=== PATIENT | female | born 1960 | race African-American/Black ===

== ENCOUNTER 2018-06-06 16:48 | Inpatient (IN) ==
[2018-06-06] MEDS ORDERED: NS 1,000 ML IV ONE (17:15)
[2018-06-06] MEDS ORDERED: PROTONIX IV ONE (17:15)
[2018-06-06] MEDS ORDERED: SODIUM CHLORIDE 0.9% INJ ONE (17:15)
[2018-06-06] MEDS ORDERED: ATIVAN IV ONE (17:16)
[2018-06-06] MEDS ORDERED: ZOFRAN IV ONE ×2 (17:16→18:08)
--- NOTE | 2018-06-06 17:42 | Diag Imaging Result Doc PS360 ---
EXAM: CHEST-2 VIEWS 06/06/2018 HISTORY: tachypneic TECHNIQUE: AP upright and lateral chest COMMENT: There is cardiomegaly. There are bilateral pleural effusions. There is lingular atelectasis. None of these findings were present on 01/17/2015. IMPRESSION: Atelectasis versus pneumonia. Cardiomegaly and pleural effusions. Electronically signed by Melchor Goss 06/06/2018 5:39 PM
[2018-06-06 18:02] LABS: BASO# 0.02 X1000 (0.0-0.2); BASO% 0.2 % (0.0-0.8); EOS# 0.01 X1000 (0.0-0.7); EOS% 0.1 % (0.0-10.0); HEMATOCRIT 36.5 % (37.0-47.0); HEMOGLOBIN 11.8 g/dL (12.0-16.0); IMM GRAN# 0.07 X1000 (0.0-0.04); IMM GRAN% 0.5 % (0.0-0.5); LYMPH# 1.91 X1000 (1.2-3.4); LYMPH% 14.7 % (20.5-51.1); MCH 30.4 PG (27-31); MCHC 32.3 g/dL (33-37); MCV 94.1 FL (81-99); MONO# 1.79 X1000 (0.11-0.59); MONO% 13.8 % (1.7-9.3); MPV 10.1 FL (7.4-10.4); NEUT# 9.18 X1000 (1.4-6.5); NEUT% 70.7 % (42.2-75.2); PLT 281 X1000 (130-400); RBC 3.88 XMIL (4.2-5.4); RDW 12.1 % (11.5-14.5); WBC 12.98 X1000 (4.8-10.8)
[2018-06-06 18:19] LABS: ALBUMIN 3.8 g/dL (3.5-5.0); CREATININE 1.3 mg/dL (0.5-0.9); POTASSIUM 4.2 mmol/L (3.5-5.1); TOTAL BILIRUBIN 0.8 mg/dL (0.20-1.00); TOTAL PROTEIN 7.7 g/dL (6.3-8.3)
[2018-06-06] MEDS ORDERED: ROCEPHIN 1 GM in NS 50 ML IV ONE (18:19)
[2018-06-06] MEDS ORDERED: TORADOL IV ONE (18:37)
[2018-06-06] MEDS ORDERED: XANAX PO PRN (20:43)
[2018-06-06] MEDS: DESYREL PO SCH (21:43)
[2018-06-06] MEDS: TOPROL XL PO SCH (21:44)
--- NOTE | 2018-06-06 22:56 | PROVIDER DOCUMENTATION ---
This chart was entered by Miracle Lindquist Scribe, acting as scribe for Jevon Webster MD. HPI-Respiratory General - General Stated Complaint: flank pain/confusion Time Seen by Provider: 06/06/18 16:57 Source: patient, EMS ([employer] [employer]) Allergies/Adverse Reactions: Patient Allergies Allergy/AdvReac Type Severity Reaction Status Date / Time No Known Allergies Allergy Verified 06/06/18 19:07 Home Medications: Home Medication List Medication Instructions Recorded Confirmed Last Taken Type Alprazolam 1 mg PO HS PRN 05/23/17 06/06/18 09/05/17 History Metoprolol Succinate 100 mg PO HS 05/23/17 06/06/18 09/04/17 History Trazodone [Desyrel] 150 mg PO QHS 09/05/17 06/06/18 09/04/17 History - History of Present Illness-Resp Nature of Presenting Problem: 57 yobf presents to the ed via ems ([employer]) with sob and rib pain, LUQ pain and thoracic back pain intermittent for 1 month Quality of Pain: reports: fullness Severity in ED: reports: mild Onset/Duration: reports: other (1 month) Timing: reports: still present Exposure: reports: unknown cause Cough Quality/Degree: reports: mild, dry cough Episode Frequency: frequent episodes Current Respiratory Medication Therapy: Initiated see nurses note Modifying Factors: improves with: oxygen (2LPM), sitting upright. worse with: exertion, lying down Associated Symptoms: reports: cough, fever/chills (99.5), hurts to breathe, shortness of breath, other (n/v). denies: headache, wheezing Similar Symptoms Previously?: Yes Recently seen or treated by another doctor?: Yes (recently seen in ed for elena) Review of Systems - Adult - REVIEW OF SYSTEMS - ADULT Constitutional: reports: see HPI, chills, fever (99.5) Eyes: reports: no symptoms reported Ears, Nose, Mouth & Throat: reports: no symptoms reported Cardiovascular: reports: see HPI, other (hurts to breathe). denies: chest pain , syncope Respiratory: reports: see HPI, cough, dyspnea on exertion, excessive sputum production, pleurisy, shortness of breath. denies: wheezing Gastrointestinal: reports: see HPI, abdominal pain, nausea, vomiting. denies: diarrhea Genitourinary: reports: no symptoms reported Musculoskeletal: reports: see HPI, back pain. denies: neck pain Integumentary: reports: no symptoms reported Neurological: denies: dizziness/vertigo, headache/migraines Psychiatric: reports: no symptoms reported Endocrine: reports: no symptoms reported Hematologic/Lymphatic: reports: no symptoms reported Allergic/Immunologic: reports: no symptoms reported All Other Systems: Reviewed and Negative Past History - Adult - PAST MEDICAL HISTORY-ADULT Review of Records: reports: Old Records Reviewed, Nursing Assessment Review, Medications Reviewed, Social history reviewed & non-contributory. Major Childhood Illnesses: reports: denies history Cardiovascular: reports: HTN Respiratory: reports: denies history Gastrointestinal: reports: GERD Obstetrical/Gynecological: reports: denies history Genitourinary: reports: denies history Musculoskeletal: reports: chronic pain Neurological: reports: denies history Psychiatric: reports: anxiety, depression Endocrine/Immune: reports: denies history Other Conditions: reports: denies history - PRIOR SURGERIES/PROCEDURES Surgical/Procedure History: reports: reviewed, not pertinent, hysterectomy - IMMUNIZATION STATUS Childhood Immunizations: See Nurse Assessment Flu Vaccine: See Nurse Assessment - FAMILY HISTORY Family History: reviewed, not pertinent - SOCIAL HISTORY Smoking: cigarettes, less than 1 pack/day Provider spent 3-5 mins advising pt. on dangers of tobacco.: Discussed manners to quit use, and f/u contacts for add'l counseling. Substance Use: denies Alcohol Use Frequency: never Living Situation: family Physical Exam-General - PHYSICAL EXAM-ADULT Initial Vital Signs Reviewed: Yes - CONSTITUTIONAL General Appearance: alert, mild distress, obese - EYES Eyes: PERRL/EOMI, pale conjunctivae - HEAD, EARS, NOSE, MOUTH & THROAT HENMT: normocephalic/atraumatic. negative: moist mucous membranes (dry) - NECK Neck: supple, normal inspection - RESPIRATORY Respiratory: chest non-tender, respiratory distress (mild), increased rate (24) , other (speaking in 4-5 word sentences). negative: accessory muscle use, crackles, rales, rhonchi - CARDIOVASCULAR Cardiovascular: normal peripheral pulses, tachycardia (122) - GASTROINTESTINAL (ABDOMEN) Abdominal Exam: normal bowel sounds, soft, tenderness (LUQ with palpation) - GENITOURINARY Female Genitalia/Pelvic Exam: deferred Rectal Exam: deferred Hemoccult Exam: deferred - LYMPHATIC Lymphatic: no adenopathy - MUSCULOSKELETAL Back Exam: normal inspection, no CVA tenderness, muscle spasm, other (thoracic tenderness from rib pain) Extremity: normal range of motion, normal gait, no calf tenderness, normal capillary refill, pelvis stable - SKIN Integumentary: normal color, normal turgor, warm/dry - NEUROLOGIC Neurologic: grossly normal, no motor/sensory deficits - PSYCHIATRIC Psych/Mental Status: normal mood/affect, normal thought content, normal thought process, oriented x 3 Progress - PLAN OF CARE/RESULTS Progress/Plan/Lab Results: Vital Signs - 8 hr 06/06/18 16:50 06/06/18 17:10 06/06/18 17:15 Temperature 99.5 F Pulse Rate 123 H 120 H 120 H Respiratory Rate 18 Blood Pressure 121/90 121/90 O2 Sat by Pulse Oximetry 96 95 96 06/06/18 17:20 06/06/18 17:34 06/06/18 17:40 Temperature Pulse Rate 120 H 120 H 121 H Respiratory Rate Blood Pressure O2 Sat by Pulse Oximetry 95 96 92 L 06/06/18 17:50 06/06/18 18:00 06/06/18 18:10 Temperature Pulse Rate 119 H 119 H 121 H Respiratory Rate Blood Pressure O2 Sat by Pulse Oximetry 94 L 94 L 94 L 06/06/18 18:16 06/06/18 18:20 06/06/18 18:30 Temperature Pulse Rate 120 H 119 H 119 H Respiratory Rate Blood Pressure 127/103 O2 Sat by Pulse Oximetry 93 L 92 L 93 L 06/06/18 18:40 06/06/18 18:50 06/06/18 19:00 Temperature Pulse Rate 120 H 120 H 120 H Respiratory Rate Blood Pressure O2 Sat by Pulse Oximetry 98 94 L 93 L 06/06/18 19:03 06/06/18 19:10 06/06/18 19:20 Temperature Pulse Rate 121 H 126 H 120 H Respiratory Rate Blood Pressure 157/85 O2 Sat by Pulse Oximetry 93 L 94 L 94 L 06/06/18 19:30 Temperature Pulse Rate 121 H Respiratory Rate Blood Pressure O2 Sat by Pulse Oximetry 93 L Laboratory Results - last 24 hr 06/06/18 06/06/18 06/06/18 17:47 17:47 17:47 WBC 12.98 H RBC 3.88 L Hgb 11.8 L Hct 36.5 L MCV 94.1 MCH 30.4 MCHC 32.3 L RDW Std Deviation 12.1 Plt Count 281 MPV 10.1 Immature Gran % (Auto) 0.5 Neut % (Auto) 70.7 Lymph % (Auto) 14.7 L [place] % (Auto) 13.8 H Eos % (Auto) 0.1 Baso % (Auto) 0.2 Immature Gran # (Auto) 0.07 H Neut # (Auto) 9.18 H Lymph # (Auto) 1.91 [place] # (Auto) 1.79 H Eos # (Auto) 0.01 Baso # (Auto) 0.02 Sodium 137 Potassium 4.2 Chloride 102 Carbon Dioxide 19 L Anion Gap 16 BUN 31 H Creatinine 1.3 H Estimated GFR/1.73 m2 51 BUN/Creatinine Ratio 24 Glucose 119 H Calculated Osmolality 282 Calcium 9.0 Total Bilirubin 0.80 AST 19 ALT 18 Alkaline Phosphatase 98 Creatine Kinase 50 Troponin T Total Protein 7.7 Albumin 3.8 Globulin 3.9 Albumin/Globulin Ratio 1.0 Amylase 29 Lipase 17 Plasma Lactate 06/06/18 06/06/18 17:47 18:39 WBC RBC Hgb Hct MCV MCH MCHC RDW Std Deviation Plt Count MPV Immature Gran % (Auto) Neut % (Auto) Lymph % (Auto) [place] % (Auto) Eos % (Auto) Baso % (Auto) Immature Gran # (Auto) Neut # (Auto) Lymph # (Auto) [place] # (Auto) Eos # (Auto) Baso # (Auto) Sodium Potassium Chloride Carbon Dioxide Anion Gap BUN Creatinine Estimated GFR/1.73 m2 BUN/Creatinine Ratio Glucose Calculated Osmolality Calcium Total Bilirubin AST ALT Alkaline Phosphatase Creatine Kinase Troponin T < 0.010 Total Protein Albumin Globulin Albumin/Globulin Ratio Amylase Lipase Plasma Lactate 2.5 H Orders Category Date Time Status Admit - [facility] Routine AdmDCTranf 06/06/18 18:35 Active Nursing- MD Consult Request ROUTINE Care 06/06/18 20:43 Active VS [Vital Signs Order] Q 4-HR ASSESS Care 06/06/18 20:43 Active Z-Document. for Tele Applied ORDERED Care 06/06/18 20:43 Active MD [Physician/Provider Consults] Routine Cons 06/06/18 20:43 Ordered cxr [CHEST-2 VIEWS] [RAD] Stat Exams 06/06/18 17:14 Completed AMYLASE [CHEM] Stat Lab 06/06/18 17:47 Completed BASIC METABOLIC PANEL [CHEM] DAILY Lab 06/07/18 06:00 Ordered BASIC METABOLIC PANEL [CHEM] DAILY Lab 06/08/18 06:00 Ordered BASIC METABOLIC PANEL [CHEM] DAILY Lab 06/09/18 06:00 Ordered BLOOD CULTURE [BLDCUL] Stat Lab 06/06/18 18:39 Results CBC WITH DIFF [HEME] DAILY Lab 06/07/18 06:00 Ordered CBC WITH DIFF [HEME] DAILY Lab 06/08/18 06:00 Ordered CBC WITH DIFF [HEME] DAILY Lab 06/09/18 06:00 Ordered CBC WITH ELECTRONIC DIFF [HEME] Stat Lab 06/06/18 17:47 Completed CK PROFILE [SP CHEM] Q8HR Lab 06/06/18 17:47 Completed CK PROFILE [SP CHEM] Q8HR Lab 06/07/18 05:00 Ordered CK PROFILE [SP CHEM] Q8HR Lab 06/07/18 13:00 Ordered CMP [COMPREHENSIVE METABOLIC PANEL] [CHEM] Stat Lab 06/06/18 17:47 Completed Flu Swab [INFLUENZA SCREEN A/B] Stat Lab 06/06/18 21:02 Completed LACTATE, PLASMA [CHEM] Stat Lab 06/06/18 18:39 Completed LIPASE [CHEM] Stat Lab 06/06/18 17:47 Completed SPUTUM CULTURE WITH GRAM STAIN [RM] Stat Lab 06/06/18 20:43 Uncollected TROPONIN T Q8HR Lab 06/06/18 17:47 Completed TROPONIN T Q8HR Lab 06/07/18 05:00 Ordered TROPONIN T Q8HR Lab 06/07/18 13:00 Ordered pro-bnp [PRO B-NATRIURETIC PEPTIDE] Stat Lab 06/06/18 20:43 Uncollected 0.9% Sodium Chloride Inj [Ns] 1,000 ml Med 06/06/18 17:15 Discontinued IV 999 mls/hr Alprazolam [Xanax] Med 06/06/18 20:43 Active 1 mg PO HS PRN PRN CefTRIAXONE [Rocephin] 1 gm Med 06/06/18 18:19 Discontinued 0.9% Sodium Chloride Inj [Ns] 50 ml IV NOW CefTRIAXONE [Rocephin] 1 gm Med 06/07/18 06:00 Discontinued 0.9% Sodium Chloride Inj [Ns] 50 ml IV Q12H Ketorolac [Toradol] Med 06/06/18 18:37 Discontinued 15 mg IV NOW ONE Lorazepam [Ativan] Med 06/06/18 17:16 Discontinued 1 mg IV NOW ONE Metoprolol Succinate E.r. [Toprol Xl] Med 06/06/18 21:00 Active 100 mg PO HS Ondansetron [Zofran] Med 06/06/18 18:08 Discontinued 4 mg IV NOW ONE Ondansetron [Zofran] Med 06/06/18 17:16 Discontinued 8 mg IV NOW ONE Pantoprazole [Protonix] Med 06/06/18 17:15 Discontinued 40 mg IV NOW ONE Sodium Chloride 0.9% Med 06/06/18 17:15 Discontinued 10 ml INJ NOW ONE Trazodone [Desyrel] Med 06/06/18 21:00 Active 150 mg PO QHS Telemetry [OM.EQ] Routine Oth 06/06/18 20:43 Active EKG [EKG] Stat Ther 06/06/18 18:21 Ordered Echo Spec/Color Dop W/O Contra Routine Ther 06/06/18 20:43 Ordered Transfer/Admit Order [TRANSFER] Routine Transfer 06/06/18 18:36 Completed Patient meet criteria for sepsis. sepsis protocol initiated. Patient care, assessment and plan discussed with the attending physician Dr. Leobardo Navarro and he agree with the plan as documented. Result Diagrams: 06/06/18 17:47 06/06/18 17:47 - REASSESSMENT Reassessment #1 Time Reassessed: 17:21 Status: unchanged - XRAY 1 XRAY: Bilateral XRAY Study: Chest (EXAM: CHEST-2 VIEWS 06/06/2018 HISTORY: tachypneic TECHNIQUE: AP upright and lateral chest COMMENT: There is cardiomegaly. There are bilateral pleural effusions. There is lingular atelectasis. None of these findings were present on 01/17/2015. IMPRESSION: Atelectasis versus pneumonia. Cardiomegaly and pleural effusions. Electronically signed by Melchor Goss 06/06/2018 5:39 PM) Impression: See EMR Report - CONSULTS/PCP/HOSPITALIST Notification #1 *Consult/PCP/Hospitalist*: Dr. Gonzales Time Discussed: 18:38 Consult Disposition: Admit (Hx, Physical exam and Dx Disucssed with Dr. Gonzales.) Departure - Departure Date of Disposition Decision: 06/06/18 Time of Disposition Decision: 18:37 DIAGNOSIS: Tobacco use disorder, Pleural effusion Pneumonia Qualifiers: Pneumonia type: due to unspecified organism Laterality: bilateral Lung location : unspecified part of lung Qualified Code(s): J18.9 - Pneumonia, unspecified organism Sepsis Qualifiers: Sepsis type: sepsis due to unspecified organism Qualified Code(s): A41.9 - Sepsis, unspecified organism Disposition: ADMITTED INPATIENT 09 Certified Medical Emergency: Emergent Condition: Stable - Critical Care Note This patient required my direct & personal management of CC.: No Attestation - Physician/ BHARATHI Attestation Patient care was provided by Advanced Practice Provider:: No The physician spent face to face time with patient:: Yes Advanced Practice Provider documentation review:: Supervising physician onsite and consulted in the evaluation and care of this patient. The physician did have a face to face encounter with the patient. This chart was documented by the indicated scribe, (Miracle Lindquist Scribe) and accurately reflects the services I performed and decisions made by me, Jevon Webster MD, as attested by the provider's signature.
--- NOTE | 2018-06-07 00:05 | HISTORY AND PHYSICAL ---
DATE: 06/06/2018 Admitted on 06/06/[address] Coronado by Dr. Kian Gonzales. CHIEF COMPLAINT: Shortness of breath, with chest pain on deep breaths. HISTORY OF PRESENT ILLNESS: The patient as a 57-year-old female, who says she has been sick since , which is approximately 2 months. She went to the emergency room one time, and was given some ibuprofen about 2 weeks ago. She comes back in, says she is still coughing, coughing up some yellow sputum. Has not noticed any fever at home. Has not noticed any wheezing. She just can't quit coughing. Now, she is short of breath. Chest x-ray shows bilateral pleural effusions, lingular atelectasis versus pneumonia, and cardiomegaly, that were not there on previous x-rays, at least in 2014. Initially, it was felt she had bilateral lower lobe infiltrates, but I do not see that on her x-ray, and it was not reported by the vegetable specker. Her white count is 12,980, with a hemoglobin 11.8, hematocrit 36.5. Electrolytes are essentially normal. Creatinine is slightly up at 1.3, BUN 31. HOME MEDICATIONS: Includes Xanax 1 mg at bedtime as needed for anxiety. She says she does not use much of that. Metoprolol ER 24 100 mg at bedtime. Trazodone 150 mg at bedtime. She tells me she was taking Norvasc, so I am not sure which one she is really on. We will have to clarify this. SOCIAL HISTORY: Smokes a little less than a pack a day now. Used to smoke a pack a day. Quit using alcohol in 2002. Apparently, was using crack cocaine and whiskey at that time, and went into a treatment program, and got off of alcohol and drugs. PAST MEDICAL HISTORY: Past history also includes lumbar disk disease. She says she is seeking disability based on that. She lost her insurance recently, and did not go to her regular doctor because of that, but instead came to the emergency room. She had not seen her regular physician for her cough during this time. ALLERGIES: The patient has no known allergies. FAMILY HISTORY: She has 1 child in good health, a daughter. REVIEW OF SYSTEMS: Neurological: She has had some tension headaches across the front of her head recently. No visual problems, seizures. Pulmonary: Has had cough and wheezing. She tried taking just plain Mucinex, which may actually make her cough a little bit worse. She says it has not been very productive, but what she has seen has been a little yellow. Cardiovascular: Denies chest pains, other than chest wall pain from coughing. Has noticed pedal edema, sometimes up to her knees. It is not swollen much at this time. She says that started in the last couple of months. She is having trouble breathing when she lies down. GI: Does have a good bit of heartburn. Has some discomfort under the sternum that she has assumed is heartburn. Takes Prilosec or Zantac for that. It does seem to help. Denies constipation, diarrhea, hematochezia, melena. : Has had no difficulty with urination. Musculoskeletal: Has some arthritis. Had trigger thumb that she had operated on at one time, on the left. Psychiatric: Has been very depressed recently. She is on trazodone 150 mg at bedtime. PHYSICAL EXAMINATION: Vital Signs: Show temperature of 99.5 degrees Fahrenheit, pulse 123, respirations 18, blood pressure 121/90, oxygen saturation 96% on 2 L. Weight is 210 pounds. She is 5 feet 11 inches tall. HEENT: She is normocephalic. EOMS intact. PERRLA. Throat clear. Lungs: Have a little dullness in the bases bilaterally, but I do not hear any rales, rhonchi, or wheezes at this point. Heart: Tachycardic, without murmurs, gallops, or friction rubs. Abdomen: Soft. Active bowel sounds. Has some generalized tenderness, perhaps from her coughing. Pelvic: Exam deferred. Rectal: Exam deferred Breast: Exam deferred. Extremities: She has no pedal edema at this time. Pulses are 2+ over 3+ bilaterally. IMAGING DATA: Chest x-ray does show the cardiomegaly, the pleural effusions, and possibly lingular pneumonia or atelectasis. ASSESSMENT: 1. Respiratory distress, with cough and possible lingular pneumonia. 2. Tachycardia. 3. Cardiomegaly that seems to be new. 4. Pleural effusions. 5. Hypertension. 6. Obesity. 7. Tobacco addiction. PLAN: We will admit, and start on antibiotics. Blood cultures have been drawn. Will try to get sputum cultures. I feel like the patient needs a cardiac workup as well. We will get an echocardiogram and a proBNP. Please see orders. cc: MD Victor Hugo Vilchis Jr, MD
--- NOTE | 2018-06-07 01:27 | ED EKG INTERP ---
This chart was entered by Katia Bar Scribe, acting as scribe for Jevon Nichole MD. EKG Interpretation - EKG Time of EKG reading by physician:: 18:39 EKG Read and Signed by:: Jevon Nichole EKG Interpretation (*Must complete 3 of following elements*): Abnormal (non specific t wave abnormality) Rate: 120 Rhythm: nsr [place]: normal QRS: normal [place] Interval: normal Attestation - Physician/ BHARATHI Attestation Patient care was provided by Advanced Practice Provider:: No The physician spent face to face time with patient:: Yes Advanced Practice Provider documentation review:: Supervising physician onsite and consulted in the evaluation and care of this patient. The physician did have a face to face encounter with the patient. This chart was documented by the indicated scribe, (Katia Bar, Jair) and accurately reflects the services I performed and decisions made by me, Jevon Nichole MD, as attested by the provider's signature.
[2018-06-07] MEDS: ZOFRAN ODT PO PRN ×2 (03:48→19:27)
[2018-06-07 05:07] LABS: IMM GRAN% 0.9 % (0.0-0.5); MPV 10.4 FL (7.4-10.4)
[2018-06-07 05:14] LABS: BASO# 0.01 X1000 (0.0-0.2); BASO% 0.1 % (0.0-0.8); HEMATOCRIT 34.6 % (37.0-47.0); HEMOGLOBIN 11.2 g/dL (12.0-16.0); IMM GRAN# 0.12 X1000 (0.0-0.04); LYMPH# 1.49 X1000 (1.2-3.4); LYMPH% 11.8 % (20.5-51.1); MCH 30.8 PG (27-31); MCHC 32.4 g/dL (33-37); MCV 95.1 FL (81-99); MONO# 1.44 X1000 (0.11-0.59); MONO% 11.4 % (1.7-9.3); NEUT# 9.62 X1000 (1.4-6.5); NEUT% 75.8 % (42.2-75.2); PLT 298 X1000 (130-400); RBC 3.64 XMIL (4.2-5.4); RDW 12.3 % (11.5-14.5); WBC 12.68 X1000 (4.8-10.8)
[2018-06-07 05:22] LABS: CALCIUM 8.5 mg/dL (8.8-10.2); CREATININE 1.8 mg/dL (0.5-0.9); POTASSIUM 4.6 mmol/L (3.5-5.1)
[2018-06-07] MEDS ORDERED: ROCEPHIN 1 GM in NS 50 ML IV SCH (06:00)
--- NOTE | 2018-06-07 07:09 | EKG Report ---
Test Performed on : 06/06/2018 6:37:46 PM Test Reason : tachycardia Blood Pressure : / mmHG Vent. Rate : 120 BPM Atrial Rate : 120 BPM P-R Int : 144 ms QRS Dur : 076 ms QT Int : 330 ms P-R-T Axes : 062 047 060 degrees QTc Int : 466 ms Sinus tachycardia. Nonspecific T wave abnormality Abnormal ECG When compared with ECG of 11-APR-2012 19:13, Vent. rate has increased BY 64 BPM Nonspecific T wave abnormality now evident in Inferior leads Nonspecific T wave abnormality now evident in Lateral leads Unconfirmed Result
--- NOTE | 2018-06-07 09:36 | PROGRESS NOTE ---
DATE: 06/07/2018 SUBJECTIVE: Ms. Colvin comes to the emergency room with severe shortness of breath. She has possible pneumonia with leukocytosis and atelectasis. She has bilateral pleural effusion with cardiomegaly. This could be hypertensive heart failure. ASSESSMENT AND PLAN: We obtained Cardiology consult on her and we will continue the IV Rocephin and IV Lasix on her. She is septic. The lactate level is 2.5. We will add Levaquin also on the present regimen. cc: Victor Hugo Coronado MD
[2018-06-07] MEDS: LEVAQUIN 500 MG/D5W 500 MG/100 ML IVPB IV SCH (10:48)
[2018-06-07] MEDS: NS 1,000 ML IV SCH (11:45)
[2018-06-07] MEDS ORDERED: NS 1,000 ML ONE ×2 (11:51→17:26)
--- NOTE | 2018-06-07 12:14 | EKG Report ---
Test Performed on : 06/07/2018 11:43:46 AM Test Reason : PERICARDIAL EFFUSION Blood Pressure : / mmHG Vent. Rate : 099 BPM Atrial Rate : 099 BPM P-R Int : 158 ms QRS Dur : 084 ms QT Int : 384 ms P-R-T Axes : 064 055 052 degrees QTc Int : 492 ms Normal sinus rhythm. Nonspecific ST and T wave abnormality Prolonged QT Abnormal ECG When compared with ECG of 06-JUN-2018 18:37, (Unconfirmed) No significant change was found Confirmed by Ketan JARAMILLO, Regino Arriaza ([id number]) on 06/07/2018 1:09:26 PM
--- NOTE | 2018-06-07 12:18 | CARDIOLOGY CONSULTATION ---
DATE: 06/07/2018 REASON FOR CONSULTATION: The patient is admitted with chest pain, shortness of breath, abnormal echocardiogram, large pericardial effusion. HISTORY: This is a 57-year-old, -[place] lady who has been sick since [place] and has been to the emergency room in the past with some left-sided chest discomfort. She comes in as she has some cough with bnuyrw-zr-jweorgxfiiwi expectoration. She does not complain of having any fevers. She has some shortness of breath. She does not complain of having chest pain in the last few weeks; however, she does complain of feeling short of breath. There is no history of palpitations. She has had episodes of dizziness more so in the last 1 to 2 days. She has not passed out. Chest x-ray revealed cardiomegaly with atelectasis versus pneumonia. An echocardiogram was done. Please see detailed echocardiogram report which revealed pericardial tamponade. REVIEW OF SYSTEM: A 14-point review of systems was done. Cardiovascular System : As above. Respiratory System: As above. Central Nervous System: No focal weakness to suggest a CVA or TIA. Genitourinary: There is no dysuria or hematuria. Endocrine system: Stable. PAST MEDICAL HISTORY: 1. Hypertension. 2. Chronic back pain. 3. Gastroesophageal reflux disease. 4. Anxiety/depression. HOME MEDICATIONS: 1. Xanax. 2. Metoprolol extended release 100 mg. 3. Trazodone 150. SOCIAL HISTORY: She smokes a little less than a pack of cigarettes. There is no history of alcohol abuse. In the past, she had abused recreational drugs. PHYSICAL EXAMINATION: Vital Signs: Blood pressure was 123/94; however, when we examined her, she had paradoxical drop in her blood pressure, 140 to a drop of at least to 120. Jugular venous pressure was elevated. Heart: First and second heart sounds were heard. There was no S3 gallop or rub. Respiratory System: Expiratory wheeze. Abdomen: Soft, obese, nontender. There was no guarding or rigidity. Bowel sounds were heard. Central Nervous System: Alert and was moving all 4 extremities. Extremities: Examination of extremities revealed trace edema. HEENT: Atraumatic, normocephalic. Pupils were equal and reacting to light. ASSESSMENT AND PLAN: Ms. Sara Colvin is a 57-year-old, -[place] lady with history of anxiety disorder, hypertension. She comes in with complaints of having cough with some mucoid- to-mucopurulent expectoration; also, increasing shortness of breath. Chest x- ray revealed cardiomegaly and atelectasis. An echocardiogram was done which revealed a large pericardial effusion with tamponade features. Please see detailed echocardiogram report. In addition, there drop of systolic blood pressure with respiration suggestive of tamponade clinically, and the patient also had an episode of dizziness in the last day or 2. No viky syncope. RECOMMENDATIONS: I have discussed with Dr. Navarro for placement of a pericardial window. As far as the etiology is concerned, there is no history of any cancer maybe and likely idiopathic or viral related. cc: MD Victor Hugo Aldana MD [facility]
[2018-06-07] MEDS ORDERED: SENSORCAINE-MPF 0.5%/EPI 1:200,000 ONE (14:27)
[2018-06-07] MEDS ORDERED: KETAMINE ONE (15:23)
[2018-06-07] MEDS ORDERED: VERSED ONE ×2 (15:24→15:25)
[2018-06-07] MEDS ORDERED: SODIUM CHLORIDE 0.9% 0 ML ONE (15:25)
[2018-06-07] MEDS ORDERED: BRIDION ONE (16:33)
--- NOTE | 2018-06-07 17:04 | Diag Imaging Result Doc PS360 ---
CHEST-PORTABLE - 06/07/2018 INDICATION: tube placement COMPARISON: 06/06/2018 FINDINGS: There are surgical skin shady over the epigastrium. There is a very poorly visualized tube in the left upper quadrant somewhere. There is cardiomegaly and significant pulmonary vascular congestion. There are probably small pleural effusions. IMPRESSION: Indeterminate tube in the upper abdomen terminating in the left upper quadrant. Electronically signed by Сергей Alvarado 06/07/2018 5:02 PM
[2018-06-07] MEDS ORDERED: NEOSTIGMINE ONE (18:15)
[2018-06-07] MEDS ORDERED: NORCURON ONE (18:15)
[2018-06-07] MEDS ORDERED: ROBINUL ONE (18:15)
[2018-06-07 18:16] LABS: BODY FLUID SOURCE MISCELLANEOUS; WBC BF 5952 /cumm
[2018-06-07 18:17] LABS: MONOS 76 %; POLYS 24 %
[2018-06-07 18:29] LABS: URINE SOURCE CATH
[2018-06-07 18:32] LABS: BILIRUBIN URINE NEGATIVE (NEGATIVE); BLOOD URINE TRACE (NEGATIVE); COLOR YELLOW; GLUCOSE URINE NEGATIVE (NEGATIVE); KETONE URINE NEGATIVE (NEGATIVE); LEUKOCYTES URINE SMALL (NEGATIVE); NITRITE URINE NEGATIVE (NEGATIVE); PH URINE 5.5; PROTEIN URINE 30 mg/dL (NEGATIVE); SP GRAVITY URINE 1.015; TURBIDITY URINE CLEAR (CLEAR); UROBILINOGEN URINE NORMAL (NORMAL)
[2018-06-07 18:38] LABS: UR EPITHELIAL CELLS <10 /HPF (<10); URINE BACTERIA NEGATIVE /HPF; URINE RBC <10 /HPF (<10)
--- NOTE | 2018-06-07 18:43 | ECHO REPORT ---
ORDER DATE: 06/06/2018 CLINICAL INDICATIONS: Shortness of breath, chest pain, and tachycardia. M-MODE MEASUREMENTS: Left ventricle end diastole: 2.5 cm. Left ventricle end systole: 2.0 cm. Posterior wall: 1.0 cm. Interventricular septum: 1.0 cm. Left atrium: 3.9 cm. Aortic root: 3.4 cm. SUMMARY OF 2-DIMENSIONAL IMAGING: This study is basically remarkable for the fact that there is a very large pericardial effusion and there are echocardiographic signs of compression of the right ventricle during diastole. The heart is literally swinging within the effusion. 1. The tricuspid valve shows trace of regurgitation. 2. The inferior vena cava appears to be at the upper limits of normal. 3. The pulmonic valve is normal. 4. The mitral valve shows mild degree of regurgitation. 5. Pulse wave Doppler of mitral inflow shows mild reversal of the E and the A ratio. 6. Tissue Doppler of septal and lateral mitral annulus averages 7 cm. 7. The aortic valve appears to be grossly normal. CONCLUSION: In summary, this echocardiographic study shows the presence of a large pericardial effusion with indication of pericardial tamponade. I discussed this with Dr. Dobbins. Surgical consultation has been requested urgently. cc: MD Kian Tate Jr, MD Amit V. Vora, MD
[2018-06-07] MEDS: ROCEPHIN 1 GM in NS 50 ML IV SCH (18:46)
[2018-06-07] MEDS ORDERED: NORCO-7.5 PO PRN (18:57)
[2018-06-07 18:58] LABS: LDH BODY FLUID 2455 U/L
[2018-06-07 19:00] LABS: URINE CASTS GRANULAR PRESENT
[2018-06-07] MEDS: MORPHINE IV PRN (19:26)
[2018-06-07] MEDS: DESYREL PO SCH (21:00)
[2018-06-07] MEDS: TOPROL XL PO SCH (21:01)
[2018-06-08] MEDS: NS 1,000 ML IV SCH ×2 (01:51→17:57)
[2018-06-08 02:36] LABS: INR 1.2; PROTIME 16.2 Seconds (11.0-16.0)
--- NOTE | 2018-06-08 04:16 | GENERAL SURGERY CONSULTATION ---
DATE: 06/07/2018 CHIEF COMPLAINT: Shortness of breath. HISTORY OF PRESENT ILLNESS: This is a 57-year-old female with a 2-month history of daily shortness of breath, worse with exertion. There are no relieving factors. She denies chest pain, fever, but she has had some nausea. She also has had some productive cough recently. PAST MEDICAL HISTORY: Hypertension. PAST SURGICAL HISTORY: Partial hysterectomy, right knee surgery. FAMILY HISTORY: Hypertension and diabetes. SOCIAL HISTORY: She is a former smoker. She denies alcohol. CURRENT MEDICATIONS: Norvasc, trazodone, and ibuprofen. REVIEW OF SYSTEMS: Ten systems reviewed and negative except as noted above. ALLERGIES: No known drug allergies. PHYSICAL EXAMINATION: Vital Signs: Temperature 98, pulse 100, respirations 20, blood pressure 102/67, O2 saturation 97%. General: She is a well-developed female, who looks her stated age. She is in moderate distress. HEENT: Normocephalic, atraumatic. Extraocular muscles intact. Pupils equal, round, reactive to light. Sclerae anicteric. Moist mucous membranes. Hearing grossly normal. No oral lesions. Neck: Supple. No thyromegaly. CV: Tachycardic. Respiratory: Bilateral breath sounds. No increased work of breathing. GI: Soft, nontender, nondistended. No organomegaly or mass. Extremities: No clubbing, cyanosis, or edema. Skin: Warm and dry. No rash. Musculoskeletal: Moves all extremities equally and well. OTHER DIAGNOSTIC DATA: Echocardiogram today per Dr. Dobbins, revealed a large pericardial effusion with tamponade. ASSESSMENT AND PLAN: A 57-year-old female with pericardial tamponade. Etiology is unclear. We are planning a pericardial window. I discussed the risks, benefits, and alternatives with her including bleeding, wound infection, injury to the heart or lungs, perioperative cardiac or pulmonary complications and other imponderables. She understands and agrees to proceed. cc: MD Victor Hugo Tubbs MD
--- NOTE | 2018-06-08 04:56 | OPERATIVE NOTE ---
PROCEDURE DATE: 06/07/2018 PREOPERATIVE DIAGNOSIS: Pericardial tamponade. POSTOPERATIVE DIAGNOSIS: Pericardial tamponade. PROCEDURE: Pericardial window. SURGEON: Robert Navarro MD. ANESTHESIA: General. ESTIMATED BLOOD LOSS: 50 mL. COMPLICATIONS: None apparent. SPECIMENS: Pericardial fluid for culture and sensitivity, LDH, total protein, cell count and differential, and cytology, and a portion of the pericardium for pathology. FINDINGS: She had about 800 mL of bloody pericardial fluid. I did not detect any nodules of the pericardium or the heart or the epicardium. There were no adhesions. TECHNIQUE: The patient was brought to the operating room and placed supine on the table. General anesthesia was induced. She was prepped and draped in the usual sterile fashion. An incision was made over the xiphoid to the epigastrium with a knife and carried down through the subcutaneous tissue with cautery. The linea alba was incised. A small rent was made in the peritoneum. I visualized the liver. There were no injuries to peritoneal organs. I then palpated the pericardium and incised it with a knife. We suctioned out the pericardial fluid, cut out a small section of the pericardium with scissors, and sent it for pathology. I swept my finger around the pericardial sac and did not feel any adhesions or nodularity. A Kleber drain was brought in and placed into the pericardial sac and then exited through a separate stab incision. It was anchored to the skin with nylon suture. I closed the peritoneal rent with a 0 Vicryl. I closed the linea alba with interrupted 0 Vicryl. The skin was closed with skin clips. There were no apparent complications. Her hemodynamics did improve after draining the pericardial fluid. She was awakened in guarded condition and transferred to the recovery room. cc: MD Victor Hugo Tubbs MD
[2018-06-08 05:48] LABS: BASO# 0.02 X1000 (0.0-0.2); BASO% 0.1 % (0.0-0.8); EOS# 0.01 X1000 (0.0-0.7); EOS% 0.1 % (0.0-10.0); HEMATOCRIT 32.5 % (37.0-47.0); HEMOGLOBIN 10.6 g/dL (12.0-16.0); IMM GRAN# 0.13 X1000 (0.0-0.04); LYMPH# 1.52 X1000 (1.2-3.4); LYMPH% 11.4 % (20.5-51.1); MCH 30.8 PG (27-31); MCHC 32.6 g/dL (33-37); MCV 94.5 FL (81-99); MONO# 1.64 X1000 (0.11-0.59); MONO% 12.3 % (1.7-9.3); MPV 10.2 FL (7.4-10.4); NEUT# 10.05 X1000 (1.4-6.5); NEUT% 75.1 % (42.2-75.2); PLT 251 X1000 (130-400); RBC 3.44 XMIL (4.2-5.4); WBC 13.37 X1000 (4.8-10.8)
[2018-06-08 06:04] LABS: AGAP 13; BUN 26 mg/dL (8-22); CALCIUM 7.9 mg/dL (8.8-10.2); CHLORIDE 105 mmol/L (98-107); COSMO 283; ESTIMATED GFR > 60; GLUCOSE 103 mg/dL (70-104); POTASSIUM 4.4 mmol/L (3.5-5.1); SODIUM 139 mmol/L (136-145); TCO2 21 mmol/L (25-35)
[2018-06-08] MEDS: MORPHINE IV PRN ×2 (06:50→17:56)
--- NOTE | 2018-06-08 07:38 | EKG Report ---
Test Performed on : 06/08/2018 06:58:22 AM Test Reason : dyspnea, pericardial effusion Blood Pressure : / mmHG Vent. Rate : 089 BPM Atrial Rate : 089 BPM P-R Int : 172 ms QRS Dur : 088 ms QT Int : 388 ms P-R-T Axes : 058 061 070 degrees QTc Int : 472 ms Normal sinus rhythm. Nonspecific T wave abnormality Prolonged QT (T-U fusion?, consider hypokalemia) Abnormal ECG When compared with ECG of 07-JUN-2018 11:43, No significant change was found Confirmed by Ketan JARAMILLO, Regino Arriaza ([id number]) on 06/08/2018 8:09:28 AM
[2018-06-08] MEDS: LEVAQUIN 500 MG/D5W 500 MG/100 ML IVPB IV SCH (09:10)
[2018-06-08] MEDS: LASIX IV SCH (09:10)
--- NOTE | 2018-06-08 09:38 | PROGRESS NOTE ---
DATE: 06/08/2018 Ms. Colvin is doing better. At present, her vital signs are stable. Blood pressure is 130/75. She had a pericardiocentesis done, and 100 mL of sanguinous fluid was taken out. No adhesions were noted. This was performed by Dr. Navarro. She is feeling better. Her lungs sound clear with somewhat poor air entry at the bases. Echocardiogram had shown some pericardial effusion with possible tamponade. -3 cc: Victor Hugo Coronado MD
[2018-06-08] MEDS: ZOFRAN ODT PO PRN ×2 (10:50→17:57)
[2018-06-08] MEDS: PROTONIX PO SCH (10:50)
--- NOTE | 2018-06-08 10:51 | GENERAL SURGERY PROGRESS NOTE ---
DATE: 06/08/2018 SUBJECTIVE: The patient feels better. Decreased chest pain and shortness of breath. She is having some heartburn. OBJECTIVE: She is afebrile. Vital signs are stable. General: She is awake, alert, oriented x3 in no acute distress. CV: Regular rate and rhythm. Respiratory: Bilateral equal breath sounds. No work of breathing. GI: Soft, nontender, nondistended. Incision is clean, dry, and intact. TOOTIE drain bloody. LABORATORY: White blood cell count 13,000. Hemoglobin 10.6, hematocrit 32.5. Electrolytes reviewed and notable for improving BUN and creatinine. IMAGING: None today. ASSESSMENT AND PLAN: A 57-year-old female status post pericardial window for large effusion. She is symptomatically and hemodynamically much improved. I will order her a GI soft diet. She can get out of bed and ambulate as tolerated and be transferred out of the ICU per the primary team. We will also start her on Protonix for her heartburn. cc: MD Victor Hugo Tubbs MD
[2018-06-08] MEDS: ROCEPHIN 1 GM in NS 50 ML IV SCH (17:56)
[2018-06-08] MEDS: TOPROL XL PO SCH (22:36)
[2018-06-08] MEDS: DESYREL PO SCH (22:36)
[2018-06-09] MEDS: MORPHINE IV PRN ×2 (00:25→15:19)
[2018-06-09] MEDS: ZOFRAN ODT PO PRN ×2 (00:26→21:42)
[2018-06-09] MEDS: NS 1,000 ML IV SCH (01:00)
[2018-06-09 06:06] LABS: BASO# 0.02 X1000 (0.0-0.2); BASO% 0.2 % (0.0-0.8); EOS# 0.03 X1000 (0.0-0.7); EOS% 0.3 % (0.0-10.0); HEMATOCRIT 31.6 % (37.0-47.0); HEMOGLOBIN 10.2 g/dL (12.0-16.0); IMM GRAN# 0.07 X1000 (0.0-0.04); IMM GRAN% 0.7 % (0.0-0.5); LYMPH# 1.03 X1000 (1.2-3.4); LYMPH% 10.7 % (20.5-51.1); MCH 30.9 PG (27-31); MCHC 32.3 g/dL (33-37); MCV 95.8 FL (81-99); MONO# 1.55 X1000 (0.11-0.59); MONO% 16.1 % (1.7-9.3); NEUT# 6.93 X1000 (1.4-6.5); PLT 265 X1000 (130-400); RDW 11.7 % (11.5-14.5); WBC 9.63 X1000 (4.8-10.8)
[2018-06-09 06:22] LABS: AGAP 12; BUN 21 mg/dL (8-22); CALCIUM 8.2 mg/dL (8.8-10.2); CHLORIDE 104 mmol/L (98-107); COSMO 278; CREATININE 0.8 mg/dL (0.5-0.9); ESTIMATED GFR > 60; GLUCOSE 91 mg/dL (70-104); POTASSIUM 4.2 mmol/L (3.5-5.1); SODIUM 138 mmol/L (136-145); TCO2 22 mmol/L (25-35)
[2018-06-09] MEDS: PROTONIX PO SCH (06:53)
[2018-06-09] MEDS: LEVAQUIN 500 MG/D5W 500 MG/100 ML IVPB IV SCH (08:47)
[2018-06-09] MEDS: LASIX IV SCH (08:47)
--- NOTE | 2018-06-09 10:34 | PROGRESS NOTE ---
DATE: 06/09/2018 Ms. Colvin was moved out of ICU yesterday. Her vital signs are stable. White count has come down from 13.37 to 9.63. Hemoglobin is stable. She had pericardiotomy performed for drainage of some extrapericardial effusion. Her INR is 1.2. Electrolytes are normal, and urinalysis is negative. I am going to repeat a chest x-ray on her in the morning. She is on IV Levaquin as well as Rocephin, and she is getting furosemide 40 mg daily. Overall condition is otherwise stable. -8 cc: Victor Hugo Coronado MD
--- NOTE | 2018-06-09 14:33 | GENERAL SURGERY PROGRESS NOTE ---
DATE: 06/09/2018 SUBJECTIVE: The patient is feeling much better. No chest pain or shortness of breath. OBJECTIVE: She is afebrile. Vital signs are stable. General: She is awake, alert, oriented x4 in no acute distress. Respiratory: No work of breathing. Skin: The epigastric incision is intact. The TOOTIE drain has thin bloody fluid. LABORATORY: White blood cell count 9, hemoglobin 10. BMP okay. ASSESSMENT AND PLAN: A 57-year-old female status post pericardial window for cardiac tamponade and pericardial effusion. She is improving. We will keep the drain in a few more days. cc: MD Victor Hugo Tubbs MD
[2018-06-09] MEDS: MOTRIN PO SCH (18:02)
[2018-06-09] MEDS: ROCEPHIN 1 GM in NS 50 ML IV SCH (18:02)
[2018-06-09] MEDS: COLCRYS PO SCH ×2 (18:02→21:42)
[2018-06-09] MEDS: TOPROL XL PO SCH (21:42)
[2018-06-09] MEDS: DESYREL PO SCH (21:42)
[2018-06-10 06:23] LABS: BASO# 0.03 X1000 (0.0-0.2); BASO% 0.4 % (0.0-0.8); EOS# 0.07 X1000 (0.0-0.7); HEMATOCRIT 31.8 % (37.0-47.0); HEMOGLOBIN 10.3 g/dL (12.0-16.0); LYMPH# 1.11 X1000 (1.2-3.4); LYMPH% 15.7 % (20.5-51.1); MCH 30.5 PG (27-31); MCHC 32.4 g/dL (33-37); MCV 94.1 FL (81-99); MONO% 15.6 % (1.7-9.3); MPV 9.7 FL (7.4-10.4); NEUT# 4.75 X1000 (1.4-6.5); NEUT% 67.3 % (42.2-75.2); PLT 264 X1000 (130-400); RBC 3.38 XMIL (4.2-5.4); RDW 11.7 % (11.5-14.5); WBC 7.06 X1000 (4.8-10.8)
[2018-06-10 06:59] LABS: AGAP 11; BUN 20 mg/dL (8-22); CALCIUM 8.6 mg/dL (8.8-10.2); CHLORIDE 104 mmol/L (98-107); COSMO 282; CREATININE 0.8 mg/dL (0.5-0.9); ESTIMATED GFR > 60; GLUCOSE 94 mg/dL (70-104); POTASSIUM 3.7 mmol/L (3.5-5.1); SODIUM 140 mmol/L (136-145); TCO2 25 mmol/L (25-35)
--- NOTE | 2018-06-10 06:59 | GENERAL SURGERY PROGRESS NOTE ---
DATE: 06/10/2018 SUBJECTIVE: The patient seems to be doing okay. She has a little drainage out of her pericardial window drain. OBJECTIVE: Vital Signs: Patient's current temperature is 99.1; her temperature max is 100.2. Remainder of vital signs have been stable. General: No acute distress. Cardiovascular: Regular rate and rhythm. Drain in place with some serosanguineous output. Lungs grossly clear. ASSESSMENT AND PLAN: A 57-year-old status post open pericardial window. Postoperative state. At this time, the patient seems to be doing okay. We will keep the TOOTIE drain in place for a few more days per recommendation from Dr. Navarro. We will monitor her closely. cc: MD Victor Hugo Heart MD
[2018-06-10] MEDS ORDERED: DULCOLAX PR ONE (07:24)
[2018-06-10] MEDS ORDERED: LASIX IV ONE (07:26)
--- NOTE | 2018-06-10 07:48 | PROGRESS NOTE ---
DATE: 06/10/2018 SUBJECTIVE: A 57-year-old -[place] patient admitted with chest pain and shortness of breath, chest congestion, some cough. The patient was sick for 2 months. The patient was taking [id number] medication without significant relief. The patient also had cough with yellowish sputum. Chest x-ray showed bilateral pleural effusion. Lingular atelectasis versus pneumonia and cardiomegaly. Her workup - echocardiogram did show large pericardial effusion and cardiac tamponade. Cardiology consult obtained. The patient was in ICU. Surgical consult obtained. The patient underwent pericardial window. The patient is doing better. Her shortness of breath improved. She denied any typical chest pain. No high-grade fever or chills. Chest congestion and cough improving. No nausea or vomiting. The patient was complaining of being constipated. Oral intake is fair. PAST MEDICAL HISTORY: Significant for hypertension, gastroesophageal reflux disease, chronic back pain, anxiety and depression. PHYSICAL EXAMINATION: Vital Signs: Blood pressure 131/86, pulse 81, respirations 16, temperature 99.1. T-max was 100.2. Skin: No rash. Head atraumatic, normocephalic. [place] conjunctivae. Anicteric sclerae. Extraocular muscle movement normal. Fundus cannot be penetrated. Good oral hygiene. No tonsillopharyngeal congestion or exudate. Ears and nose benign. Neck supple. No JVD, thyromegaly, or lymphadenopathy. Chest: Bilateral good air entry present. Few basal crepitations. The patient had pericardial window done for cardiac tamponade. CVS: S1 and S2 heard. Abdomen soft, globular. Bowel sounds present. Extremities: No cyanosis, clubbing. No acute DVT. PHONE OPERATOR: Alert, awake, answering questions fairly well. LABORATORY DATA: Lab data done today: Hemoglobin 10.3, hematocrit 31.8. WBC count 7. 06, platelet count 264,000. Electrolytes fairly benign. ProBNP 3563. PATIENT'S PROBLEMS: 1. Pericardial effusion/cardiac tamponade, status post surgery. 2. Hypertension. 3. Chronic low back pain. 4. Anxiety and depression. 5. Constipation. Labs and medication noted. Admission history and physical reviewed. I am going to get a chest x- ray if it is not done today. Treat her constipation symptomatically. Continue IV antibiotics. Overall plan discussed with the patient, and she is in agreement. cc: MD Victor Hugo Patel MD
[2018-06-10] MEDS: PROTONIX PO SCH (08:05)
[2018-06-10] MEDS: ZOFRAN ODT PO PRN ×2 (08:05→23:02)
[2018-06-10] MEDS: MOTRIN PO SCH ×3 (08:56→17:43)
[2018-06-10] MEDS: COLCRYS PO SCH ×2 (08:56→23:01)
[2018-06-10] MEDS: LEVAQUIN 500 MG/D5W 500 MG/100 ML IVPB IV SCH (08:56)
[2018-06-10] MEDS: MILK OF MAGNESIA PO SCH (09:05)
--- NOTE | 2018-06-10 09:18 | Diag Imaging Result Doc PS360 ---
EXAM: CHEST-2 VIEWS HISTORY: follow up TECHNIQUE: Chest two views COMPARISON: 06/07/2018 FINDINGS: Improved inspiratory effort. There are basilar infiltrates and tiny pleural effusions. Heart is borderline mildly prominent. There are midline skin shady overlying the lower chest and upper abdomen. The vasculature is less distended. IMPRESSION: Overall interval improvement. Electronically signed by Andrew Portillo 06/10/2018 9:15 AM
[2018-06-10] MEDS: ROCEPHIN 1 GM in NS 50 ML IV SCH (17:44)
[2018-06-10] MEDS: DESYREL PO SCH (23:01)
[2018-06-10] MEDS: TOPROL XL PO SCH (23:02)
[2018-06-11] MEDS: ZOFRAN ODT PO PRN (06:26)
[2018-06-11] MEDS: PROTONIX PO SCH (06:26)
--- NOTE | 2018-06-11 06:51 | GENERAL SURGERY PROGRESS NOTE ---
DATE: 06/11/2018 SUBJECTIVE: The patient seems to be doing okay. No major issues. OBJECTIVE: Vital Signs: The patient is currently afebrile. Her vital signs have been stable. TOOTIE drain has 30 mL serosanguineous output. General Examination: No acute distress. Cardiovascular: Regular rate and rhythm. Chest: TOOTIE drain in place with some serosanguineous output. Lungs: Grossly clear. ASSESSMENT AND PLAN: A 57-year-old status post open pericardial window. Postoperative state. At this time, keep the Praveen-Mendes drain in place. Dr. Navarro will reassess tomorrow for potential removal. cc: MD Victor Hugo Heart MD
[2018-06-11] MEDS ORDERED: KLOR-CON PO ONE (08:00)
[2018-06-11] MEDS ORDERED: LASIX IV ONE (08:00)
--- NOTE | 2018-06-11 08:10 | PROGRESS NOTE ---
DATE: 06/11/2018 SUBJECTIVE: Ms. Colvin is doing better. She did have a good bowel movement yesterday. The patient is concerned about her Cooper catheter. Her shortness of breath, chest congestion, and cough improved. I gave her 30 mg of Lasix yesterday. I repeated a chest x-ray which did show overall improvement. No nausea or vomiting. Denied any chest pain. The patient still has a TOOTIE drain. OBJECTIVE: Vital Signs: Her vital signs noted. Neck: Supple. No JVD. Lungs: Bibasilar crepitations. Heart: S1 and S2 heard. Abdomen: Soft, nontender. Bowel sounds present. Extremities: No acute DVT clinically. TRANSPORTATION MAINTENANCE WORKER: Alert, awake. Able to move all 4 limbs. PROBLEM LIST: 1. Cardiac tamponade, status post pericardial window. The patient does have a Praveen-Mendes drain, surgeon is managing it. 2. Hypertension. 3. Chronic low back pain. 4. Constipation, improved. PLAN: Labs and medication noted. Overall, patient is doing better. I am going to remove the Cooper catheter. Repeat blood work tomorrow. Overall plan discussed with the patient and she is in agreement. cc: MD Victor Hugo Patel MD
[2018-06-11] MEDS: LEVAQUIN 500 MG/D5W 500 MG/100 ML IVPB IV SCH (08:42)
[2018-06-11] MEDS: MILK OF MAGNESIA PO SCH (08:42)
[2018-06-11] MEDS: MOTRIN PO SCH ×3 (08:43→18:12)
[2018-06-11] MEDS: COLCRYS PO SCH ×2 (08:43→20:03)
[2018-06-11] MEDS: ROCEPHIN 1 GM in NS 50 ML IV SCH (18:12)
[2018-06-11] MEDS: DESYREL PO SCH (20:03)
[2018-06-11] MEDS: TOPROL XL PO SCH (20:03)
[2018-06-12] MEDS: PROTONIX PO SCH (05:54)
[2018-06-12 06:13] LABS: BASO# 0.01 X1000 (0.0-0.2); BASO% 0.2 % (0.0-0.8); EOS% 1.6 % (0.0-10.0); HEMATOCRIT 33.3 % (37.0-47.0); HEMOGLOBIN 10.8 g/dL (12.0-16.0); IMM GRAN# 0.05 X1000 (0.0-0.04); IMM GRAN% 0.8 % (0.0-0.5); LYMPH% 25.5 % (20.5-51.1); MCH 30.3 PG (27-31); MCHC 32.4 g/dL (33-37); MCV 93.3 FL (81-99); MONO# 0.72 X1000 (0.11-0.59); MONO% 11.5 % (1.7-9.3); MPV 9.7 FL (7.4-10.4); NEUT% 60.4 % (42.2-75.2); PLT 295 X1000 (130-400); RBC 3.57 XMIL (4.2-5.4); RDW 11.7 % (11.5-14.5); WBC 6.28 X1000 (4.8-10.8)
[2018-06-12 07:02] LABS: AGAP 10; ALB/GLOB RATIO 0.9; ALBUMIN 3.2 g/dL (3.5-5.0); ALKALINE PHOSPHATASE 89 U/L (32-104); BUN 17 mg/dL (8-22); CALCIUM 8.7 mg/dL (8.8-10.2); CHLORIDE 105 mmol/L (98-107); COSMO 285; CREATININE 0.8 mg/dL (0.5-0.9); ESTIMATED GFR > 60; GLUCOSE 100 mg/dL (70-104); GOT 31 U/L (10-30); GPT 21 U/L (10-36); MAGNESIUM 2.2 mg/dL (1.5-2.7); POTASSIUM 4.5 mmol/L (3.5-5.1); SODIUM 142 mmol/L (136-145); TCO2 27 mmol/L (25-35); TOTAL BILIRUBIN 0.31 mg/dL (0.20-1.00); TOTAL PROTEIN 6.7 g/dL (6.3-8.3)
--- NOTE | 2018-06-12 07:26 | EKG Report ---
Test Performed on : 06/10/2018 06:23:51 AM Test Reason : pericardial effusion Blood Pressure : / mmHG Vent. Rate : 082 BPM Atrial Rate : 082 BPM P-R Int : 160 ms QRS Dur : 084 ms QT Int : 400 ms P-R-T Axes : 067 050 043 degrees QTc Int : 467 ms Normal sinus rhythm. Possible Left atrial enlargement Borderline ECG When compared with ECG of 08-JUN-2018 06:58, No significant change was found Confirmed by Ketan JARAMILLO, Regino Arriaza ([id number]) on 06/12/2018 8:21:47 AM
--- NOTE | 2018-06-12 10:49 | PROGRESS NOTE ---
DATE: 06/12/2018 Ms. Colvin is doing fairly well. She has a TOOTIE drain and she is being followed by general surgery. Dr. Mortensen had seen her yesterday. We are waiting for Dr. Navarro to evaluate her and remove the drain. We may think about sending her home. She has not been followed by the mangle tender cloth now. cc: Victor Hugo Coronado MD
[2018-06-12] MEDS: MOTRIN PO SCH (10:52)
[2018-06-12] MEDS: LEVAQUIN 500 MG/D5W 500 MG/100 ML IVPB IV SCH (10:53)
[2018-06-12] MEDS: COLCRYS PO SCH (10:53)
[2018-06-12] MEDS: MILK OF MAGNESIA PO SCH (10:53)
--- NOTE | 2018-06-12 12:59 | GENERAL SURGERY PROGRESS NOTE ---
DATE: 06/12/2018 SUBJECTIVE: The patient is doing well. No chest pain or shortness of breath. OBJECTIVE: GI: Soft, nontender, nondistended. Incision is healing well. CV: Regular rate and rhythm. Respiratory: No work of breathing. Chest: TOOTIE drain with scant serosanguineous fluid. It was removed today at the bedside. ASSESSMENT AND PLAN: This is a 57-year-old female status post pericardial effusion and cardiac tamponade. She is much improved. I will remove the drain today. She can be discharged home per her family physician and Cardiology. cc: MD Victor Hugo Tubbs MD
[2018-06-12 15:24] VITALS: BP 140/84
== END 2018-06-12 17:20 | disposition home or self-care (01) | DRG 272 ==
LOC: SUPCPDRO → ED 16:48 → EDIPHOLD 19:37 → ICU 06-07 17:27 → 4N 06-08 18:55
PROVIDERS: ADMIT Internal Medicine; ATTEND Internal Medicine
CPT/HCPCS: 51702; 71010; 71020; 71045; 71046; 80048; 80053; 81001; 82150; 82550; 83605; 83615; 83690; 83735; 83880; 84155; 84484; 85025; 85610; 87040; 87088; 87205; 87275; 87276; 87804; 88305; 89051; 93005; 93010; 93306; 96361; 96365; 96375; 99285; A9270; C9113; J0696; J1885; J1940; J1956; J2060; J2250; J2270; J2405; J7030; S0164

== ENCOUNTER 2018-09-17 13:04 | Inpatient (IN) ==
[2018-09-17] MEDS ORDERED: ASPIRIN PO ONE (13:12)
[2018-09-17] MEDS ORDERED: TORADOL IV ONE (13:21)
[2018-09-17] MEDS ORDERED: LASIX IV ONE (13:24)
[2018-09-17 13:50] LABS: BASO# 0.02 X1000 (0.0-0.2); BASO% 0.2 % (0.0-0.8); EOS# 0.15 X1000 (0.0-0.7); EOS% 1.6 % (0.0-10.0); HEMATOCRIT 38.1 % (37.0-47.0); HEMOGLOBIN 12.7 g/dL (12.0-16.0); IMM GRAN# 0.06 X1000 (0.0-0.04); IMM GRAN% 0.6 % (0.0-0.5); LYMPH# 1.67 X1000 (1.2-3.4); LYMPH% 17.6 % (20.5-51.1); MCH 28.7 PG (27-31); MCHC 33.3 g/dL (33-37); MCV 86.2 FL (81-99); MONO# 1.22 X1000 (0.11-0.59); MONO% 12.8 % (1.7-9.3); MPV 10.1 FL (7.4-10.4); NEUT# 6.38 X1000 (1.4-6.5); NEUT% 67.2 % (42.2-75.2); PLT 300 X1000 (130-400); RBC 4.42 XMIL (4.2-5.4); RDW 12.7 % (11.5-14.5)
[2018-09-17 13:54] LABS: INR 1.08; PROTIME 14.8 Seconds (11.0-16.0)
[2018-09-17 13:55] LABS: PTT 27.9 Seconds (22.3-41.8)
[2018-09-17 14:18] LABS: ALB/GLOB RATIO 0.7; ALBUMIN 3.6 g/dL (3.5-5.0); CALCIUM 9.1 mg/dL (8.8-10.2); CREATININE 1.3 mg/dL (0.5-0.9); POTASSIUM 3.9 mmol/L (3.5-5.1); TOTAL BILIRUBIN 0.49 mg/dL (0.20-1.00); TOTAL PROTEIN 8.8 g/dL (6.3-8.3); URIC ACID 10.9 mg/dL (2.4-5.7)
--- NOTE | 2018-09-17 14:35 | Diag Imaging Result Doc PS360 ---
EXAM: CHEST-2 VIEWS INDICATION: chest pain TECHNIQUE: 2 views COMPARISON: 06/10/2018 FINDINGS: There is fairly dense airspace consolidation involving the left mid and lower lung zone indicating pneumonia. There is milder consolidation in the left upper lung zone. The right lung is grossly clear. There may be a small left effusion. The cardiomediastinal silhouette and central vasculature are grossly unremarkable. IMPRESSION: Multilobar pneumonia on the left. Electronically signed by Cong Lo 09/17/2018 2:33 PM
[2018-09-17] MEDS ORDERED: LEVAQUIN 750 MG/D5W 750 MG/150 ML IVPB IV ONE (14:50)
[2018-09-17] MEDS ORDERED: VANCOMYCIN 1 GM/NS 1 GM/250 ML IVPB IV ONE (14:50)
[2018-09-17 14:51] LABS: SED RATE 99 mm/hr (0-20)
[2018-09-17] MEDS ORDERED: NS 1,000 ML IV ONE (14:55)
--- NOTE | 2018-09-17 14:55 | PROVIDER DOCUMENTATION ---
This chart was entered by Jordana Vidal Scribe, acting as scribe for Randal Sales MD. HPI-Chest Pain - General Chief Complaint: Chest Pain Stated Complaint: HEART PT Time Seen by Provider: 09/17/18 13:15 Source: patient Allergies/Adverse Reactions: Patient Allergies Allergy/AdvReac Type Severity Reaction Status Date / Time No Known Allergies Allergy Verified 09/17/18 13:11 Home Medications: Home Medication List Medication Instructions Recorded Confirmed Last Taken Type Alprazolam 1 mg PO HS PRN 05/23/17 06/06/18 09/05/17 History Metoprolol Succinate 100 mg PO HS 05/23/17 06/06/18 09/04/17 History Trazodone [Desyrel] 150 mg PO QHS 09/05/17 06/06/18 09/04/17 History Colchicine 0.6 mg PO BID #6 tablet 06/12/18 Unknown Rx Cyclobenzaprine [Flexeril] 10 mg PO TID #20 tab 08/22/18 Unknown Rx Meloxicam [Mobic] 15 mg PO DAILY #20 tab 08/22/18 Unknown Rx - History of Present Illness-CP Nature of Presenting Problem: 57 y/o female presents to ED with sharp L sided chest pain, SOB, and fatigue onset yesterday. Pt reports she had a pericardial effusion in May and that she feels the same now. Pt is alert and oriented. Location: reports: other (L sided) Chest Pain Radiation: reports: no radiation Quality of Pain: reports: sharp Severity in ED: moderate Onset/Duration: 24 hours ago Timing: still present Context/Activities at Onset: reports: none Modifying Factors: improves with: nothing Associated Symptoms: reports: fatigue, shortness of breath Nitro Today/Relief: no nitro taken today Aspirin Treatment Today: 325 mg x 1, provided by ED Prior Chest Pain/Cardiac Workup: reports: other (pericardial effusion) Similar Symptoms Previously?: Yes (with pericardial effusion) Recently Seen Here or By Another Healthcare Provider: No Review of Systems - Adult - REVIEW OF SYSTEMS - ADULT Constitutional: reports: finnque. denies: chills, fever Eyes: reports: no symptoms reported Ears, Nose, Mouth & Throat: reports: no symptoms reported Cardiovascular: reports: chest pain. denies: palpitations Respiratory: reports: shortness of breath. denies: cough Gastrointestinal: denies: abdominal pain, diarrhea, nausea, vomiting Genitourinary: reports: no symptoms reported Musculoskeletal: denies: back pain, joint pain Integumentary: reports: no symptoms reported Neurological: denies: dizziness/vertigo, seizure Psychiatric: reports: no symptoms reported Endocrine: reports: no symptoms reported Hematologic/Lymphatic: reports: no symptoms reported Allergic/Immunologic: reports: no symptoms reported All Other Systems: Reviewed and Negative Past History - Adult - PAST MEDICAL HISTORY-ADULT Review of Records: reports: Old Records Reviewed, Nursing Assessment Review, Medications Reviewed Major Childhood Illnesses: reports: denies history Cardiovascular: reports: HTN, other (pericardial effusion) Respiratory: reports: denies history Gastrointestinal: reports: GERD Obstetrical/Gynecological: reports: denies history Genitourinary: reports: denies history Musculoskeletal: reports: chronic pain Neurological: reports: denies history Psychiatric: reports: anxiety, depression Endocrine/Immune: reports: denies history Other Conditions: reports: denies history - PRIOR SURGERIES/PROCEDURES Surgical/Procedure History: reports: reviewed, not pertinent, appendectomy, hysterectomy, orthopedic (extremity) (R knee), other (mouth bone graft; sinus) - IMMUNIZATION STATUS Childhood Immunizations: See Nurse Assessment Flu Vaccine: See Nurse Assessment - FAMILY HISTORY Family History: reviewed, not pertinent - SOCIAL HISTORY Smoking: quit less than 1 year Substance Use: none/never Alcohol Use Frequency: never Living Situation: family Physical Exam-General - PHYSICAL EXAM-ADULT Initial Vital Signs Reviewed: Yes - CONSTITUTIONAL General Appearance: appears well, alert, no apparent distress - EYES Eyes: PERRL/EOMI, pink conjunctivae - HEAD, EARS, NOSE, MOUTH & THROAT HENMT: normocephalic/atraumatic, moist mucous membranes, normal ENT inspection - NECK Neck: non-tender, full range of motion - RESPIRATORY Respiratory: chest non-tender, lungs clear, normal breath sounds, increased rate , other (shallow respirations) - CARDIOVASCULAR Cardiovascular: tachycardia, other (muffled heart sounds) - GASTROINTESTINAL (ABDOMEN) Abdominal Exam: normal bowel sounds, soft, tenderness (LUQ/epigastric) - MUSCULOSKELETAL Back Exam: normal inspection, no CVA tenderness Extremity: normal range of motion, non-tender, normal gait - SKIN Integumentary: normal color, warm/dry - NEUROLOGIC Neurologic: grossly normal - PSYCHIATRIC Psych/Mental Status: normal mood/affect, normal thought content, normal thought process - HEART Score HEART Score: History: Slightly Suspicious HEART Score: ECG: Normal HEART Score: Age: 45-65 Years HEART Score: Risk Factors for Atherosclerotic Disease: 1 or 2 Risk Factors HEART Score: Troponin: < or = Normal Limit Total HEART Score:: 2 Progress - PLAN OF CARE/RESULTS Progress/Plan/Lab Results: Vital Signs - 8 hr 09/17/18 13:08 Temperature 99.8 F H Pulse Rate 108 H Respiratory Rate 18 Blood Pressure 115/77 O2 Sat by Pulse Oximetry 95 Laboratory Results - last 24 hr 09/17/18 09/17/18 09/17/18 13:28 13:28 13:28 WBC 9.50 RBC 4.42 Hgb 12.7 Hct 38.1 MCV 86.2 MCH 28.7 MCHC 33.3 RDW Std Deviation 12.7 Plt Count 300 MPV 10.1 Immature Gran % (Auto) 0.6 H Neut % (Auto) 67.2 Lymph % (Auto) 17.6 L Hill % (Auto) 12.8 H Eos % (Auto) 1.6 Baso % (Auto) 0.2 Immature Gran # (Auto) 0.06 H Neut # (Auto) 6.38 Lymph # (Auto) 1.67 Hill # (Auto) 1.22 H Eos # (Auto) 0.15 Baso # (Auto) 0.02 ESR 99 H PT INR PTT (Actin FS) Sodium 132 L Potassium 3.9 Chloride 100 Carbon Dioxide 20 L Anion Gap 12 BUN 23 H Creatinine 1.3 H Estimated GFR/1.73 m2 51 BUN/Creatinine Ratio 18 Glucose 101 Calculated Osmolality 268 Uric Acid 10.9 H Calcium 9.1 Total Bilirubin 0.49 AST 28 ALT 18 Alkaline Phosphatase 104 Creatine Kinase 129 Troponin T Gur-P-Uqyvcuzmczw Pept 170 Total Protein 8.8 H Albumin 3.6 Globulin 5.2 Albumin/Globulin Ratio 0.7 09/17/18 09/17/18 13:28 13:28 WBC RBC Hgb Hct MCV MCH MCHC RDW Std Deviation Plt Count MPV Immature Gran % (Auto) Neut % (Auto) Lymph % (Auto) Hill % (Auto) Eos % (Auto) Baso % (Auto) Immature Gran # (Auto) Neut # (Auto) Lymph # (Auto) Hill # (Auto) Eos # (Auto) Baso # (Auto) ESR PT 14.8 INR 1.08 PTT (Actin FS) 27.9 Sodium Potassium Chloride Carbon Dioxide Anion Gap BUN Creatinine Estimated GFR/1.73 m2 BUN/Creatinine Ratio Glucose Calculated Osmolality Uric Acid Calcium Total Bilirubin AST ALT Alkaline Phosphatase Creatine Kinase Troponin T < 0.010 Zlh-C-Tdqkqdehbud Pept Total Protein Albumin Globulin Albumin/Globulin Ratio Orders Category Date Time Status Cardiac Monitoring DIRECTED Care 09/17/18 13:12 Active Oxygen Therapy- ED Nursing DIRECTED Care 09/17/18 13:12 Active Saline Loc NOW Care 09/17/18 13:12 Active CHEST-2 VIEWS [RAD] Stat Exams 09/17/18 13:12 Completed BLOOD CULTURE [BLDCUL] Stat Lab 09/17/18 14:45 Uncollected CBC WITH ELECTRONIC DIFF [HEME] Stat Lab 09/17/18 13:28 Results CK PROFILE [SP CHEM] Stat Lab 09/17/18 13:28 Completed COMPREHENSIVE METABOLIC PANEL [CHEM] Stat Lab 09/17/18 13:28 Completed LACTATE, PLASMA [CHEM] Stat Lab 09/17/18 14:45 Uncollected PRO B-NATRIURETIC PEPTIDE Stat Lab 09/17/18 13:28 Completed PROTIME WITH INR [COAG] Stat Lab 09/17/18 13:28 Completed PTT [COAG] Stat Lab 09/17/18 13:28 Completed SED RATE [HEME] Stat Lab 09/17/18 13:28 Results SPUTUM CULTURE WITH GRAM STAIN [RM] Stat Lab 09/17/18 14:45 Uncollected TROPONIN T Stat Lab 09/17/18 13:28 Completed URIC ACID [CHEM] Stat Lab 09/17/18 13:28 Completed URINALYSIS W/POSS RFLX CULT [URINALYSIS] Stat Lab 09/17/18 14:52 Uncollected Aspirin Med 09/17/18 13:12 Discontinued 325 mg PO NOW ONE Furosemide [Lasix] Med 09/17/18 13:24 Discontinued 80 mg IV NOW ONE Ketorolac [Toradol] Med 09/17/18 13:21 Discontinued 30 mg IV NOW ONE Levaquin 750 mg/D5w IV Now Med 09/17/18 14:50 Ordered Levofloxacin 750 mg/D5w [Levaquin 750 mg/D5w] 750 mg in 150 ml IV NOW Vancomycin 1 gm IV Now Med 09/17/18 14:50 Ordered Vancomycin 1 gm/Ns 1 gm in 250 ml IV NOW Zosyn 4.5 gm/Ns IV Now Med 09/17/18 14:50 Ordered Piperacillin/Tazobactam [Zosyn] 4.5 gm 0.9% Sodium Chloride Inj [Ns] 100 ml IV NOW CP/SOB/Palp >45 yrs of Age Stat Oth 09/17/18 13:12 Ordered EKG [EKG] Stat Ther 09/17/18 13:12 Ordered Limited Echocardiogram Stat Ther 09/17/18 13:24 Completed Result Diagrams: 09/17/18 13:28 09/17/18 13:28 - REASSESSMENT Reassessment #1 Time Reassessed: 14:53 Status: improving (Given pain meds. When diagnosis of PNE became apparent, she was cultured and a lactate was ordered. I discussed antibiotic choice with dr. Coronado, and we will treat for HCAP PNE d/t hospital admission 3 months prior) - EKG 1 Time of EKG reading by physician:: 13:26 EKG Read and Signed by:: Randal Sales EKG Interpretation (*Must complete 3 of following elements*): Abnormal Rate: 105 Rhythm: Sinus tach Mather: normal QRS: other (possible L atrial enlargement) MS Interval: normal ST Wave: non-specific ST changes (consider lateral ischemia) Prior EKG Comparison: changes noted (Some new ST changes new from 06/10/18. -Dr. Sales) - XRAY 1 XRAY Study: Chest Impression: Abnormal (FINDINGS: There is fairly dense airspace consolidation involving the left mid and lower lung zone indicating pneumonia. There is milder consolidation in the left upper lung zone. The right lung is grossly clear. There may be a small left effusion. The cardiomediastinal silhouette and central vasculature are grossly unremarkable. IMPRESSION: Multilobar pneumonia on the left. Electronically signed by Cong Lo 09/17/2018 2:33 PM) - ULTRASOUND (By Radiology) 1 US Study: other (Echocardiogram) Impression: Normal (No pericardial effusion. Good EF. 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 Coronado Time Discussed: 13:30 Reason/Comments: Chest pain/SOB; hx pericardial effusion Consult Disposition: other (Dr. Coronado requests an echo be ordered and that we call back with results.) #2 Consult: Dr. Coronado Time Discussed: 14:50 Reason/Comments: L pneumonia; no pericardial effusion Consult Disposition: Admit Departure - Departure Date of Disposition Decision: 09/17/18 Time of Disposition Decision: 14:50 DIAGNOSIS: Hospital-acquired pneumonia, Chest pain of uncertain etiology Disposition: ADMITTED INPATIENT 09 Certified Medical Emergency: Emergent Condition: Fair Additional Freetext Instructions: ED Follow Up Instructions: You have been treated by a care provider in the Emergency Department. These instructions are being provided to you so you can have an understanding of how to care for yourself upon discharge. Upon discharge from the Emergency Department, you are responsible for making arrangements for follow-up care by a physician of your choice. Take all prescribed medications as directed. Return to the Emergency Department immediately for any new or worsening symptoms. You may call the Physician Referral phone number at [phone] to obtain a list of Physicians who are taking new patients. Referrals and Follow-Ups: Victor Hugo Coronado MD [Primary Care Provider] - Discharge Education: Healthcare-Associated Pneumonia - Critical Care Note This patient required my direct & personal management of CC.: Yes Total Time (mins): 40 Critical Care Statement: This patient required my direct personal management to treat or rule out processes, the absence of which, could potentiallly result in sudden, clinically significant life or limb threatening deterioration. Attestation - Physician/ BHARATHI Attestation Patient care was provided by Advanced Practice Provider:: No The physician spent face to face time with patient:: Yes Advanced Practice Provider documentation review:: Supervising physician onsite and consulted in the evaluation and care of this patient. The physician did have a face to face encounter with the patient. This chart was documented by the indicated scribe, (Jordana Vidal Scribe) and accurately reflects the services I performed and decisions made by me, Randal Sales MD, as attested by the provider's signature.
--- NOTE | 2018-09-17 15:04 | ECHO REPORT ---
ORDER DATE: 09/17/2018 INTERPRETING PHYSICIAN: Deon Dobbins MD PROCEDURE: This is a limited 2D echocardiogram. ECHOCARDIOGRAPHIC MEASUREMENTS: 1. Interventricular septum 1.2 cm. 2. Left ventricular posterior wall 1.0 cm. 3. Diastolic diameter 3.8. SUMMARY OF THE 2-DIMENSIONAL IMAGIN. Aortic valve leaflets are trileaflet. 2. Tricuspid valve was normal. 3. Pulmonic valve was normal. 4. Normal left ventricular cavity size. 5. Estimated ejection fraction of 65%. 6. There is trace anterior and posterior echo-free space suggestive of organized recent drainage of pericardial effusion; however, in the pleural space, a questionable effusion was noted. Would recommend a CT scan of the chest to rule out effusion. cc: Deon Dobbins MD
[2018-09-17] MEDS: DUONEB (A & A) INH SCH ×3 (15:26→23:33)
[2018-09-17] MEDS: ZOSYN 4.5 GM in NS 100 ML IV ONE ×2 (15:45→16:03)
[2018-09-17] MEDS: TYLENOL PO PRN (17:13)
[2018-09-17 17:17] LABS: URINE SOURCE CLEAN CATCH
[2018-09-17 17:21] LABS: BILIRUBIN URINE NEGATIVE (NEGATIVE); BLOOD URINE NEGATIVE (NEGATIVE); COLOR YELLOW; GLUCOSE URINE NEGATIVE (NEGATIVE); KETONE URINE NEGATIVE (NEGATIVE); LEUKOCYTES URINE LARGE (NEGATIVE); NITRITE URINE NEGATIVE (NEGATIVE); PROTEIN URINE NEGATIVE (NEGATIVE); SP GRAVITY URINE 1.013; TURBIDITY URINE CLEAR (CLEAR); UR EPITHELIAL CELLS <10 /HPF (<10); URINE BACTERIA 1+ /HPF; URINE RBC <10 /HPF (<10); URINE WBC TNTC /HPF (<10); UROBILINOGEN URINE 2 mg/dL (NORMAL)
[2018-09-17] MEDS ORDERED: VANCOMYCIN IV PER PHARMACY MISC SCH (18:30)
--- NOTE | 2018-09-17 18:48 | HISTORY AND PHYSICAL ---
HISTORY OF PRESENT ILLNESS: Ms. Colvin is a 57-year-old female who comes to the emergency room with chest pain on the left side with shortness of breath. She recently had acute pericarditis with pericardial effusion and cardiac tamponade, and she had an urgent surgery, thoracotomy done, and pericardial fluid was removed. The etiology was undetermined, probably acute viral pericarditis. She is a known case of hypertension, severe anxiety state, and has history of recurrent gout. History of degenerative arthritis in both knees. She had history of arthroscopic surgery on the right knee. She had partial hysterectomy and pericardiectomy with fluid aspiration. This was an open procedure done on an urgent basis. MEDICATIONS: Include: 1. Amlodipine 5 mg daily. 2. Alprazolam at bedtime. 3. Tramadol 50 mg p.r.n. 4. Trazodone 150 mg at bedtime. 5. Metoprolol 100 mg at bedtime. 6. Colchicine 0.6 mg b.i.d. SOCIAL HISTORY: She has been a heavy smoker in her life; however, she stopped smoking in May when she had an attack of pericarditis. She does not drink. ALLERGIES: She is not allergic to any medications. REVIEW OF SYSTEMS: Other than chest pain on the left side as well as shortness of breath, this is noncontributory. PHYSICAL EXAMINATION: GENERAL: Patient is alert. VITAL SIGNS: Temperature normal, pulse 96 per minute, respiratory rate 20, blood pressure was 155/77. HEENT: Head normocephalic. Pupils PERRLA. Fundus examination normal. Neck supple. JVP normal. ENT examination unremarkable. There is no evidence of lymphadenopathy, thyroid enlargement, pedal edema, calf tenderness, anemia, cyanosis or clubbing. Pedal pulses well felt. BREASTS: Not done. CHEST: Normal to inspection. LUNGS: Clear on auscultation except for basilar also on the left base. PMI in the normal position. HEART: Sounds normal no murmur gallop or rub noted. ABDOMEN: Nondistended. Hernial orifices normal. No guarding, rigidity, free fluid, masses, or organomegaly. Bowel sounds normal. RECTAL: Deferred. 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 Cranial nerves normal. Motor and sensory system examinations unremarkable. Deep tendon reflexes normal. Plantars downgoing. Skull and spine examinations normal for age. No cerebellar signs or signs of meningeal irritation on locomotor exam. SKIN: Unremarkable. IMPRESSION AND PLAN: 1. Chest pain on the left side. Patient has pneumonia as noted on the chest x-ray which shows multilobar pneumonia. This could be hospital-acquired infection. We are going to put her on vancomycin as well as Zosyn. The blood cultures have been done in the emergency room. 2. History of pericarditis. 3. Hypertension. 4. Severe anxiety state. 5. History of gout. cc: Victor Hugo Coronado MD
[2018-09-17] MEDS ORDERED: VANCOMYCIN 2,400 MG in NS 500 ML IV ONE (19:30)
[2018-09-17] MEDS: ZOFRAN IV PRN (20:00)
[2018-09-17] MEDS: COLCRYS PO SCH (20:59)
[2018-09-17] MEDS: XANAX PO PRN (20:59)
[2018-09-17] MEDS: DESYREL PO SCH (20:59)
[2018-09-17] MEDS: TOPROL XL PO SCH ×2 (21:00→21:22)
[2018-09-17] MEDS: ULTRAM PO SCH (21:03)
[2018-09-18] MEDS: DUONEB (A & A) INH SCH ×5 (03:42→19:45)
[2018-09-18] MEDS: ULTRAM PO SCH ×3 (04:17→20:19)
[2018-09-18] MEDS: ZOFRAN IV PRN ×2 (06:59→17:52)
--- NOTE | 2018-09-18 08:33 | PROGRESS NOTE ---
DATE: 09/18/2018 Ms. Colvin was admitted yesterday with pneumonia on the left side. She had left-sided chest pain. She has a history of pericarditis and has suddenly developed pneumonia on the left side. Two different sets of pneumonia, multiple pneumonias on the left side. She has been on vancomycin and Zosyn. We will watch her progress on that. -5 cc: Victor Hugo Coronado MD
[2018-09-18] MEDS: COLCRYS PO SCH ×2 (09:40→20:18)
[2018-09-18] MEDS: LASIX PO SCH (09:40)
[2018-09-18] MEDS: NORVASC PO SCH (09:40)
[2018-09-18] MEDS: TYLENOL PO PRN (09:43)
--- NOTE | 2018-09-18 11:07 | EKG Report ---
Test Performed on : 09/17/2018 1:22:43 PM Test Reason : chest pain Blood Pressure : / mmHG Vent. Rate : 105 BPM Atrial Rate : 105 BPM P-R Int : 156 ms QRS Dur : 084 ms QT Int : 326 ms P-R-T Axes : 056 040 134 degrees QTc Int : 430 ms Sinus tachycardia. Possible Left atrial enlargement T wave abnormality, consider lateral ischemia Abnormal ECG When compared with ECG of 10-JUN-2018 06:23, Nonspecific T wave abnormality, worse in Inferior leads T wave inversion now evident in Lateral leads Unconfirmed Result
[2018-09-18] MEDS: LEVAQUIN 750 MG/D5W 750 MG/150 ML IVPB IV SCH (17:52)
[2018-09-18] MEDS: TOPROL XL PO SCH (20:18)
[2018-09-18] MEDS: VANCOMYCIN 1,700 MG in NS 250 ML IV SCH (20:18)
[2018-09-18] MEDS: DESYREL PO SCH (20:18)
[2018-09-18] MEDS: XANAX PO PRN (21:54)
[2018-09-19] MEDS: DUONEB (A & A) INH SCH ×7 (00:16→23:11)
[2018-09-19] MEDS: ULTRAM PO SCH ×3 (05:38→20:59)
--- NOTE | 2018-09-19 09:40 | PROGRESS NOTE ---
DATE: 09/19/2018 SUBJECTIVE: Ms. Colvin is in about the same general condition. She is afebrile. However, she has a significant amount of pulmonary congestion, especially on the left side. She had 2 areas indicating pneumonia on the left side. Her blood cultures have been positive for gram-positive cocci. She is covered with vancomycin, as well as Zosyn. We will repeat the chest x-ray in the next day or two. cc: Victor Hugo Coronado MD
[2018-09-19] MEDS: LASIX PO SCH (10:06)
[2018-09-19] MEDS: COLCRYS PO SCH ×2 (10:06→20:58)
[2018-09-19] MEDS: NORVASC PO SCH (10:06)
[2018-09-19] MEDS: TYLENOL PO PRN ×2 (15:31→21:47)
[2018-09-19] MEDS: MILK OF MAGNESIA PO PRN (15:32)
[2018-09-19] MEDS: LEVAQUIN 750 MG/D5W 750 MG/150 ML IVPB IV SCH (17:30)
[2018-09-19] MEDS: ZOFRAN IV PRN (19:27)
[2018-09-19] MEDS: VANCOMYCIN 1,700 MG in NS 250 ML IV SCH (20:58)
[2018-09-19] MEDS: TOPROL XL PO SCH (20:58)
[2018-09-19] MEDS: DESYREL PO SCH (20:58)
[2018-09-19] MEDS: XANAX PO PRN (21:47)
[2018-09-20] MEDS: DUONEB (A & A) INH SCH ×6 (03:24→23:27)
[2018-09-20] MEDS: ULTRAM PO SCH ×3 (05:30→20:11)
--- NOTE | 2018-09-20 09:22 | PROGRESS NOTE ---
DATE: 09/20/2018 Ms. Colvin has Staph Hominis isolated in the blood culture. She is improving. Her lungs sound much better. We are going to repeat the chest x-ray in the morning. She is on IV Zosyn as well as vancomycin. cc: Victor Hugo Coronado MD [facility]
[2018-09-20] MEDS: NORVASC PO SCH ×2 (09:38→16:19)
[2018-09-20] MEDS: COLCRYS PO SCH ×2 (09:38→20:10)
[2018-09-20] MEDS: LASIX PO SCH (09:39)
[2018-09-20] MEDS: MILK OF MAGNESIA PO PRN (09:45)
[2018-09-20] MEDS: ZOFRAN IV PRN (14:46)
[2018-09-20] MEDS ORDERED: DULCOLAX PR ONE (16:24)
[2018-09-20] MEDS: TYLENOL PO PRN (16:39)
[2018-09-20] MEDS: LEVAQUIN 750 MG/D5W 750 MG/150 ML IVPB IV SCH (18:23)
[2018-09-20] MEDS: VANCOMYCIN 1,700 MG in NS 250 ML IV SCH (20:09)
[2018-09-20] MEDS: DESYREL PO SCH (20:10)
[2018-09-20] MEDS: XANAX PO PRN (20:19)
[2018-09-21] MEDS: TYLENOL PO PRN ×2 (04:09→17:06)
[2018-09-21] MEDS: ULTRAM PO SCH ×3 (05:06→22:38)
[2018-09-21] MEDS: DUONEB (A & A) INH SCH ×5 (05:35→19:32)
[2018-09-21] MEDS: COLCRYS PO SCH ×2 (09:26→21:15)
--- NOTE | 2018-09-21 09:55 | PROGRESS NOTE ---
DATE: 09/21/2018 Ms. Colvin is on Zosyn and vancomycin for the pneumonia. The chest x-ray has been ordered for this morning. The blood cultures were positive for Staph hominis. We are going to continue with the current management. cc: Victor Hugo Coronado MD
--- NOTE | 2018-09-21 10:09 | Diag Imaging Result Doc PS360 ---
EXAM: CHEST-2 VIEWS HISTORY: pneumoia follow up TECHNIQUE: Chest two views COMPARISON: 09/17/2018 FINDINGS: Worsening infiltrates in the left lung. Likely loculated fluid collection superiorly on the left as well as a small left basilar pleural effusion. Heart is mildly prominent. The right lung remains clear. IMPRESSION: Interval worsening. Electronically signed by Andrew Portillo 09/21/2018 10:06 AM
[2018-09-21] MEDS: VANCOMYCIN 1,700 MG in NS 250 ML IV SCH (17:06)
[2018-09-21] MEDS: LEVAQUIN 750 MG/D5W 750 MG/150 ML IVPB IV SCH (17:07)
[2018-09-21] MEDS: ZOFRAN IV PRN (18:33)
[2018-09-21] MEDS: MILK OF MAGNESIA PO PRN (21:14)
[2018-09-21] MEDS: DESYREL PO SCH (21:14)
[2018-09-21] MEDS: XANAX PO PRN (21:18)
[2018-09-22] MEDS: TYLENOL PO PRN ×2 (00:17→17:51)
[2018-09-22] MEDS: DUONEB (A & A) INH SCH ×6 (02:03→19:08)
[2018-09-22] MEDS: ULTRAM PO SCH ×4 (05:51→22:51)
[2018-09-22] MEDS: VANCOMYCIN 1,700 MG in NS 250 ML IV SCH (09:03)
[2018-09-22] MEDS: ZOFRAN IV PRN ×2 (09:04→15:01)
[2018-09-22] MEDS: COLCRYS PO SCH ×3 (09:04→22:51)
--- NOTE | 2018-09-22 10:59 | PROGRESS NOTE ---
DATE: 09/22/2018 SUBJECTIVE: Ms. Colvin is still not feeling better. She is more short of breath, has persistent cough. OBJECTIVE: Vital signs are stable. Blood pressure is 108/76. She has Staph hominis isolated from the from blood culture and was supposed it was supposed to be sensitive to oxacillin and vancomycin, is resistant to penicillin G. She is on vancomycin as well as Zosyn. She had a chest x-ray which shows worsening of the pneumonia. PLAN: I am going to ask Dr. Mccollum to check on her to give his expert opinion. cc: Victor Hugo Coronado MD
[2018-09-22] MEDS: ZOSYN 3.375 GM in NS 50 ML IV SCH ×2 (15:01→19:58)
--- NOTE | 2018-09-22 16:17 | Diag Imaging Result Doc PS360 ---
EXAM: CT THORAX W/O CONTRAST - 09/22/2018 HISTORY: lung abnormality TECHNIQUE: CT thorax without contrast. No contrast administered per request the referring provider. COMPARISON: 09/21/2018 chest radiographs FINDINGS: There is a moderate amount of pleural fluid on the left, at least some which appears to be loculated. There is also some pleural thickening on the left which is most conspicuous along the mediastinal margin. There is mild thickening of the pericardium. There is compressive atelectasis in the left lung by the pleural fluid collections. There are some interstitial marking prominence in the remainder of the left lung. There is mild pleural thickening at the paraspinal right lower lobe. There is no substantial right pleural effusion identified. There is no pneumothorax identified. There is mild mediastinal adenopathy. There is apparent bilateral supraclavicular adenopathy, most prominent on the left. IMPRESSION: Moderate amount of pleural fluid on the left, at least some which appears to be loculated. There is also some pleural thickening on the left which is most conspicuous along the mediastinal margin. There is compressive atelectasis in the left long mildly pleural fluid. There are some interstitial marking prominence in the remainder of the left lung. These findings may be inflammatory or malignant. If malignant, this could be metastatic or primary to the chest (including mesothelioma). Mild pleural thickening at the paraspinal right lower lobe. Mild mediastinal adenopathy. Bilateral supraclavicular adenopathy, most prominent on the left. This exam was performed using automated exposure control, adjustment of mA or kV according to patient size, and/or use of iterative reconstruction technique. Electronically signed by Craig Kyle 09/22/2018 4:15 PM
[2018-09-22] MEDS: DESYREL PO SCH ×2 (19:58→22:51)
[2018-09-22] MEDS: XANAX PO PRN (20:02)
[2018-09-23] MEDS: DUONEB (A & A) INH SCH ×6 (01:33→19:15)
[2018-09-23] MEDS: TYLENOL PO PRN ×2 (01:38→21:02)
[2018-09-23] MEDS: ZOSYN 3.375 GM in NS 50 ML IV SCH ×2 (01:38→09:35)
[2018-09-23] MEDS: VANCOMYCIN 1,700 MG in NS 250 ML IV SCH (02:45)
[2018-09-23] MEDS: ULTRAM PO SCH ×3 (04:18→21:01)
[2018-09-23] MEDS: COLCRYS PO SCH ×2 (09:35→21:02)
[2018-09-23] MEDS: ZOFRAN IV PRN ×2 (09:40→19:19)
[2018-09-23 11:31] LABS: BASO# 0.02 X1000 (0.0-0.2); BASO% 0.3 % (0.0-0.8); EOS# 0.06 X1000 (0.0-0.7); EOS% 0.9 % (0.0-10.0); HEMATOCRIT 35.4 % (37.0-47.0); HEMOGLOBIN 11.3 g/dL (12.0-16.0); IMM GRAN# 0.02 X1000 (0.0-0.04); IMM GRAN% 0.3 % (0.0-0.5); LYMPH# 0.87 X1000 (1.2-3.4); LYMPH% 13.8 % (20.5-51.1); MCH 28.2 PG (27-31); MCHC 31.9 g/dL (33-37); MCV 88.3 FL (81-99); MONO# 1.06 X1000 (0.11-0.59); MONO% 16.8 % (1.7-9.3); MPV 9.5 FL (7.4-10.4); NEUT# 4.29 X1000 (1.4-6.5); NEUT% 67.9 % (42.2-75.2); PLT 260 X1000 (130-400); RBC 4.01 XMIL (4.2-5.4); RDW 12.6 % (11.5-14.5); WBC 6.32 X1000 (4.8-10.8)
--- NOTE | 2018-09-23 12:45 | PROGRESS NOTE ---
DATE: 09/23/2018 SUBJECTIVE: A 57-year-old, patient admitted with chest congestion, cough, expectoration, shortness of breath. Her chest pain was left-sided, pleuritic type. The patient had pericarditis with pericardial effusion and cardiac tamponade. That was a few months ago. The patient is doing fair. The patient had increasing cough. Her chest x-ray was not improving. Her blood culture was positive. The patient is on antibiotics this morning. The patient is feeling better. Admission history, physical noted. OBJECTIVE: Vital signs: Reviewed. Neck: Neck is supple. No JVD. Lungs: Decreased air entry, left lower lung field. Bilateral occasional wheezing. CVS: S1 and S2 heard. Abdomen: Soft, nontender. Bowel sounds present. Extremities: No cyanosis, clubbing. No acute DVT. 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 X-RAYS: CT scan of the chest done yesterday; results reviewed. ASSESSMENT AND PLAN: Patient's problems includes sepsis, pleural effusion, possible pneumonia, history of pericarditis, abnormal chest computed tomography. The patient is on Kefzol. We will continue current treatment. Close observation. Infectious Disease specialist following patient with us, and slurry control tender is also going to evaluate. I am going to repeat blood work tomorrow. cc: MD Victor Hugo Patel MD
[2018-09-23] MEDS: KEFZOL 2 GM in D5W 50 ML IV SCH ×2 (13:29→21:02)
--- NOTE | 2018-09-23 14:54 | Diag Imaging Result Doc PS360 ---
EXAM: LUMBAR SPINE 2-VIEWS INDICATION: spinal osteomyelitis TECHNIQUE: 3 views COMPARISON: 08/22/2018 FINDINGS: The intervertebral disc spaces and vertebral body heights are well-maintained. There is no discrete fracture, subluxation, or significant intrinsic osseous lesion. Specifically, there is no discrete bony erosion identified. There is interval stability as compared to the previous study. Miniscule ventral marginal osteophytes at a few levels are again noted. Surrounding soft tissues are essentially unremarkable. IMPRESSION: Stable plain radiograph of the lumbar spine with no definite acute pathology. Electronically signed by Cong Lo 09/23/2018 2:52 PM
--- NOTE | 2018-09-23 17:23 | INFECTIOUS DISEASE PROGRESS NO ---
DATE: 09/23/2018 CONCLUSION: The patient has 2 separate blood cultures positive for Staph hominis. I think this is a true bacteremia and not a contaminant because both blood cultures are growing the same organism. The patient recently had a pericardial window because of a pericardial effusion. I wonder if somehow that there may be a reoccurrence of it and that is the source of the staph bacteremia. Also, the patient does have on chest x-ray a left lung infiltrate and on CT scan a left pleural effusion with prominent left lung interstitial markings, possibly there could be infection such as pneumonia and/or empyema also. 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 Patient also is complaining of low back pain and given the fact that the patient has a bacteremia, possibly she has a spinal infection. RECOMMENDATIONS: I have discontinued the patient's current antibiotics and placed her on Ancef. I have requested that an echocardiogram be performed. I have also put a consult in for Dr. Gabriel to do a thoracentesis to see if the pleural fluid is infected. I have requested Dr. Gabriel do a thoracentesis to see if the pleural fluid is infected given the fact that the patient has a bacteremia. Also, I have ordered an echocardiogram to see if there is endocarditis present or return of the patient's pericardial effusion which may be infected now. I am going to get a lumbar spine x-ray and if this is negative most likely I will order an MRI. I am discontinuing Zosyn and vancomycin and instead place the patient on Ancef. DISCUSSION: The patient tells me that in the past week she became dyspneic. She has had fever, but not coughing. She has been receiving antibiotics and she said that she has nausea with them. The patient is also complaining of low back pain. Studies thus far show a CBC with a white count of 9500, hemoglobin 12.7, platelet count 300,000. Both blood cultures are growing Staph hominis. CT scan of the chest shows a left pleural effusion and prominent interstitial markings. Chest x- ray shows worsening left lung infiltrate. CBC shows a white count of 9500, hemoglobin 12.7 and platelet count 300,000. Creatinine is 1.3. GFR is 51. The patient's urine culture was negative but the urinalysis did show bacteria and white blood cells. PAST MEDICAL HISTORY/REVIEW OF SYSTEMS: Eyes and ears: She denies trouble hearing or seeing. Neck: No pain when she moves her neck. Respiratory: See present illness. GI: No vomiting or diarrhea. She has been having nausea since she started the antibiotics in the hospital. Genitourinary: No dysuria or flank pain. Bones, joints, muscles: Does have low back pain. Integument: No rash. Neurologic: No seizures. No motor or sensory loss. FINANCE ATTORNEY HISTORY: She is a 1, para 1, Ab 0. She has had a hysterectomy. PREVIOUS HOSPITALIZATIONS AND OPERATIONS: She has had a labor and delivery, hysterectomy, in May she had pericardial window. She has had surgery on her knee and thumb. MEDICAL DISEASES: Positive for hypertension although she told me that more recently her blood pressure has not been high. 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 INFECTIOUS DISEASE HISTORY: Patient had pneumonia the last time approximately 20 years ago and the last time she had a urinary tract infection was approximately 11 years ago. FAMILY HISTORY: Positive for diabetes mellitus, hypertension, myocardial infarction, stroke and cancer. SOCIAL HISTORY: [place] She is single. She does not have any pets at home. She is applying for disability. She stopped smoking cigarettes in May of this year. She does not drink alcoholic beverages or abuse drugs. PHYSICAL EXAMINATION: Vital Signs: Temperature is 99.1 degrees, pulse 77, respirations 16, blood pressure is 98/62. Patient is 5 feet 11 inches tall, weighs 192 pounds. General: This is an obese, middle-aged female. She is in no acute distress. Head/eyes/ears/nose/throat: She can hear my spoken words and see near objects. She is edentulous. She does have 1 dental implant. She does not have any white coating on her tongue. Neck: No pain with movement of her neck. Lungs: Clear to auscultation. Cardiovascular: Heart rate is regular. No murmurs were heard. Abdomen: Soft and nontender. Neurologic: The patient is alert. She can move her extremities. There is no tremor. Her sensation is intact to touch. Her memory as regarding her medical history appears intact also. Bones, joints, muscles: There is no joint effusion. The patient is somewhat tender in her lumbar spine. Integument: No rash noted. Thank you for the consult. cc: MD Victor Hugo Long MD
--- NOTE | 2018-09-23 20:21 | CONSULTATION ---
DATE OF CONSULTATION: 09/23/2018 CHIEF COMPLAINT: Shortness of breath. HISTORY OF PRESENT ILLNESS: This is a 57-year-old female who has a complaint of shortness of breath. The patient states that she has recently had acute pericarditis with effusion that led to having a thoracotomy done to remove the pericardial fluid. Patient states that she has not felt like herself since having this surgery. Recent chest CT scan revealed a moderate amount of pleural fluid on the left. There are some compression atelectasis in the left lung by the pleural fluid collections. There are some interstitial markings. The findings may be inflammatory or malignant. HOME MEDICATIONS: Please see home reconciliation list. SOCIAL HISTORY: Heavy smoker all her life. States that she stopped smoking this past May. Denies alcohol or illicit drug use. ALLERGIES: Denies. REVIEW OF SYSTEMS: A 10-point review of systems was obtained and the pertinent is listed within the HPI, otherwise noncontributory. PHYSICAL EXAMINATION: Vital Signs: Temperature 99.1, blood pressure 98/62, pulse 80, respirations 22, O2 saturation 91% on room air. General: This is a 57-year-old female resting in bed quietly. Denies any complaints at the present time. HEENT: Head is normocephalic, atraumatic. PERRLA noted. Neck supple. Trachea midline. Mucous membranes moist and pink. Chest: S1-S2 auscultated, no murmurs, gallops or rubs. Respiratory: Clear to auscultation on the left, diminished in the left base. Abdomen: Nondistended. Bowel sounds present in all 4 quadrants. Nontender. Skin: Warm, dry, and intact. Extremities: No clubbing, cyanosis or edema noted. ASSESSMENT AND PLAN: 1. Pneumonia/sepsis. Continue IV antibiotics and bronchodilators. 2. Pleural effusion on the left. We will schedule thoracentesis. Thank you for the courtesy of this consult. Dictated by CHELE Alvarado for Patricia Gabriel MD cc: CHELE Alvarado MD Amit V. Vora, MD
[2018-09-23] MEDS: XANAX PO PRN (21:02)
[2018-09-23] MEDS: DESYREL PO SCH (21:02)
[2018-09-24] MEDS: DUONEB (A & A) INH SCH ×6 (00:53→17:51)
[2018-09-24] MEDS: KEFZOL 2 GM in D5W 50 ML IV SCH ×3 (04:25→19:59)
[2018-09-24] MEDS: ULTRAM PO SCH ×3 (04:29→21:41)
[2018-09-24 07:27] LABS: AGAP 10; ALB/GLOB RATIO 0.5; ALBUMIN 2.9 g/dL (3.5-5.0); ALKALINE PHOSPHATASE 81 U/L (32-104); BUN 10 mg/dL (8-22); C REACTIVE PROT QUANT 94.54 mg/L (0.00-5.00); CALCIUM 8.9 mg/dL (8.8-10.2); CHLORIDE 102 mmol/L (98-107); COSMO 267; CREATININE 0.9 mg/dL (0.5-0.9); ESTIMATED GFR > 60; GLUCOSE 102 mg/dL (70-104); GOT 26 U/L (10-30); GPT 14 U/L (10-36); POTASSIUM 4.1 mmol/L (3.5-5.1); SODIUM 134 mmol/L (136-145); TCO2 22 mmol/L (25-35); TOTAL BILIRUBIN 0.33 mg/dL (0.20-1.00); TOTAL PROTEIN 8.3 g/dL (6.3-8.3)
[2018-09-24] MEDS: COLCRYS PO SCH ×2 (08:17→19:59)
--- NOTE | 2018-09-24 08:31 | PROGRESS NOTE ---
DATE: 09/24/2018 SUBJECTIVE: Ms. Colvin is feeling better. She denied any high-grade fever or chills. No cough or expectoration. Shortness of breath improving. Denied any nausea or vomiting. OBJECTIVE: Vital Signs: T-max was 99.8 degrees. Neck: Supple. No JVD. Lungs: Bilateral occasional wheezing. CVS: S1 and S2 heard. Abdomen: Soft, nontender. Bowel sounds present. 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 LABORATORY DATA: Lab data done yesterday revealed elevated sedimentation rate of 109. CBC was benign. WBC count 6.32, hemoglobin 11.3, hematocrit 35.4, platelet count was 260,000. C-reactive protein was 94.54. Electrolytes were fairly benign. ASSESSMENT: The patient's problem includes sepsis. The patient is scheduled to have thoracentesis tomorrow because of loculated pleural effusion. Other problems includes pneumonia, low back pain. X-ray of the lumbosacral spine noted. The patient had history of pericarditis and cardiac tamponade. PLAN: Overall plan discussed with the patient, and she is in agreement. Continue current antibiotics and close observation. cc: MD Victor Hugo Patel MD
--- NOTE | 2018-09-24 12:16 | INFECTIOUS DISEASE PROGRESS NO ---
DATE: 09/24/2018 PRESENT ILLNESS: The patient has a Staph bacteremia. This could have originated from a recurrence of her pericarditis. She could have endocarditis as well. I think it is also a possibility that she has pneumonia. She is complaining of low back pain, but the x-ray of her lumbar spine shows no evidence of any pathology, and thus I do not think there is an infection located there. MEDICATIONS: The patient is on Ancef 2 grams IV every 8 hours. PHYSICAL EXAMINATION: Vital Signs: Temperature is 99.2 degrees, pulse 93, respirations 16, blood pressure is 115/80. General: This is a fairly healthy-appearing, middle-aged female. She is in no acute distress. HEENT: She can hear my spoken words and see near objects. She does not have any drainage from her nose or ears. There were no white patches on her tongue. Neck: There is no pain when she moves her neck. Lungs: Clear to auscultation. Cardiovascular: Regular heart rate. I did not hear a murmur. Abdomen: Soft and nontender. Neurologic: The patient is alert. She can move her extremities. There is no tremor. Her sensation is intact to touch. Her memory as regarding her medical history is intact. Integument: No rash noted. IMAGING AND LABORATORY DATA: The patient's CBC shows a white count of 6320, hemoglobin 11.3, platelet count 260,000. Creatinine is 0.9. GFR is greater than 60. Repeat blood cultures are pending. X-ray of the lumbar spine showed no pathology. ASSESSMENT AND PLAN: The patient has a Staphylococcal bacteremia. There could be other associated infections, such as empyema, pneumonia. It could be an infected pericardial window due to pericardial effusion infection. My plan is to continue cefazolin, and a thoracentesis is planned for tomorrow as well as an echocardiogram. COMORBIDITIES: She, at one time, did smoke cigarettes, but she stopped many years ago. He recently had pericarditis and required a pericardial window. cc: MD Victor Hugo Long MD
[2018-09-24] MEDS: ZOFRAN IV PRN (19:29)
[2018-09-24] MEDS: DESYREL PO SCH (19:59)
[2018-09-24] MEDS: XANAX PO PRN (19:59)
[2018-09-24] MEDS: TYLENOL PO PRN (20:30)
[2018-09-25] MEDS: KEFZOL 2 GM in D5W 50 ML IV SCH ×3 (03:51→20:45)
[2018-09-25] MEDS: ULTRAM PO SCH ×3 (04:17→20:46)
[2018-09-25] MEDS: DUONEB (A & A) INH SCH ×7 (05:14→23:18)
[2018-09-25] MEDS: ZOFRAN IV PRN ×2 (08:09→20:44)
--- NOTE | 2018-09-25 09:13 | PROGRESS NOTE ---
DATE: 09/25/2018 SUBJECTIVE: Ms. Colvin is on IV Kefzol as ordered by Dr. Mccollum who saw her over the weekend. She also had a CT scan done on Tuesday, which revealed the presence of loculated pleural effusion on the left side. Pulmonary consult has been obtained and she is supposed to have the thoracenteses on the left side today. She does not look acutely ill. However, she has sepsis. She has pneumonia. We will continue to watch her closely. cc: Victor Hugo Coronado MD
[2018-09-25] MEDS: COLCRYS PO SCH ×2 (12:20→20:45)
--- NOTE | 2018-09-25 15:59 | INFECTIOUS DISEASE PROGRESS NO ---
DATE: 09/25/2018 PRESENT ILLNESS: Ms. Colvin is being treated for a Staph hominis bacteremia, the origin of which could have been her recent pericarditis, pneumonia or possible endocarditis. MEDICATIONS: Based on her sterile blood cultures, today is day 2 of treatment with cefazolin 2 g IV every 8 hours. PHYSICAL EXAMINATION: Vital Signs: Temperature is 98.7 degrees, pulse rate 87, respiratory rate 20, blood pressure 126/81, O2 saturation is 95% on room air. General: This is a fairly healthy- appearing middle-aged female. She is lying in the bed on her left lateral side in no acute distress. HEENT: Atraumatic, normocephalic. Oral mucous membranes are pink and moist. Conjunctivae are pink. Neck: Supple. Trachea is midline. Cardiovascular: Heart rate and rhythm are regular. Normal sinus rhythm on the monitor. Respiratory: Lung sounds are clear to auscultation in upper lobes. Diminished in the left lower lobe. Abdomen: Soft, round and nontender. Bowel sounds are active. Neurologic: She is awake, alert, oriented, and able to ambulate independently. Integumentary: Skin is warm and dry. Incision site to pericardial window is a well-healed scar. LABORATORY AND X-RAY: None available today. ASSESSMENT AND PLAN: Mrs. Colvin is being treated for Staph bacteremia using Kefzol which we will continue at this time. Ms. Colvin is also being treated for the possibility of empyema or pneumonia. She does have a moderate sized loculated pleural effusion on the left and will be having ultrasound-guided thoracentesis this afternoon. Some tests have been ordered on that fluid by Dr. Gabriel. We put in additional dae that we would like to have done and the lab has been called to verify that both sets of orders are observed. There is also a possibility for endocarditis, and Dr. Mccollum has already ordered an echocardiogram. These plans been discussed with and recommended by Dr. Mccollum. COMORBIDITIES: For Ms. Colvin include recent pericarditis with a pericardial window, and history of being a heavy smoker. Dictated by CHELE Borges for James Mccollum MD cc: MD Victor Hugo Long MD [facility] CENTERBethany
[2018-09-25] MEDS ORDERED: ATIVAN IV ONE (16:39)
[2018-09-25] MEDS: TYLENOL PO PRN ×2 (16:55→21:55)
[2018-09-25 17:50] LABS: INR 1.11; PROTIME 15.2 Seconds (11.0-16.0)
[2018-09-25 17:51] LABS: PTT 29.2 Seconds (22.3-41.8)
[2018-09-25] MEDS: DESYREL PO SCH (20:45)
[2018-09-25] MEDS: XANAX PO PRN (20:45)
[2018-09-26] MEDS: KEFZOL 2 GM in D5W 50 ML IV SCH ×3 (04:00→19:50)
[2018-09-26] MEDS: ULTRAM PO SCH ×3 (05:37→20:03)
[2018-09-26] MEDS: DUONEB (A & A) INH SCH ×6 (05:37→22:50)
--- NOTE | 2018-09-26 07:14 | Diag Imaging Result Doc PS360 ---
EXAM: CHEST-1 VIEW HISTORY: SOB TECHNIQUE: Chest single view COMPARISON: 09/21/2018 FINDINGS: There are dense infiltrates in the left lung with atelectasis. Loculated pleural fluid on the left. The right lung remains clear. IMPRESSION: No interval improvement. Electronically signed by Andrew Portillo 09/26/2018 7:12 AM
--- NOTE | 2018-09-26 09:02 | ECHO REPORT ---
ORDER DATE: 09/23/2018 MEASUREMENTS: Septal thickness 1.2, left ventricular internal diameter in diastole 3.3, posterior wall thickness 1.2, aortic root 3.4, left atrium 3.4. SUMMARY: 1. Fair quality study. 2. Aortic valve is trileaflet and opens normally on 2-dimensional images. Peak gradient across the aortic valve is less than 10 mmHg. Mitral, tricuspid, and pulmonic valves are without evidence of structural abnormality. There is trace tricuspid regurgitation. The estimated systolic PA pressure by Doppler is 35 mmHg. The aortic root is normal in size. 3. Normal left ventricular chamber size with mild concentric left ventricular hypertrophy demonstrated. The estimated left ventricular ejection fraction appears to be at least 60%. No regional wall motion abnormalities are evident. The left atrium, right atrium, and right ventricle are normal in size with normal right ventricular systolic function. 4. Small posterior pericardial effusion is demonstrated. 5. Appearance of inferior vena cava suggests normal central venous pressure. CONCLUSIONS: 1. No significant valvular abnormality. 2. Mild concentric left ventricular hypertrophy with estimated left ventricular ejection fraction at least 60%. 3. Small posterior pericardial effusion. cc: MD James Wood MD Amit V. Vora, MD
[2018-09-26] MEDS: COLCRYS PO SCH ×2 (09:05→20:04)
--- NOTE | 2018-09-26 09:13 | PROGRESS NOTE ---
DATE: 09/26/2018 SUBJECTIVE: Ms. Colvin was supposed to have paracentesis yesterday. She was upset. It could not be done because of scheduling conflicts. She is doing better. Repeat chest x-ray shows loculated pleural effusion on the left side with pneumonia. She is on IV Kefzol, being followed by Dr. Mccollum as well as Dr. Gabriel. She is to have biopsy done today. cc: Victor Hugo Coronado MD
--- NOTE | 2018-09-26 09:54 | Diag Imaging Result Doc PS360 ---
EXAM: CHEST-2 VIEWS HISTORY: POST THORA TECHNIQUE: Inspiratory and expiratory chest two views COMPARISON: 5:45 AM FINDINGS: Loculated pleural fluid on the left remains. This is slightly smaller in the lower left lung. No pneumothorax. IMPRESSION: No postprocedural pneumothorax. Electronically signed by Andrew Portillo 09/26/2018 9:52 AM
--- NOTE | 2018-09-26 09:59 | Diag Imaging Result Doc PS360 ---
EXAM: US THORACENTESIS W/IMAGE GUIDE HISTORY: therapeutic and diagnostic TECHNIQUE: Ultrasound-guided thoracentesis COMPARISON: None. FINDINGS: Prior to the procedure I discussed the risk and benefits with the patient. Primary risks include bleeding, infection, and pneumothorax. Questions were answered. Consent was given. The permit was signed. Ultrasound was used to localize the largest fluid collection in the lower left chest. Multiple small loculated collections were present. This area was cleaned and draped in the normal fashion. Lidocaine was used as a local anesthetic. Needle and catheter were advanced into the fluid collection on the first attempt without difficulty. The needle was withdrawn. Approximately 65 cc were withdrawn without difficulty. The catheter was then withdrawn. No immediate postprocedural complications. IMPRESSION: Ultrasound-guided thoracentesis with no immediate complication. Electronically signed by Andrew Portillo 09/26/2018 9:57 AM
[2018-09-26 11:58] LABS: AMYLASE BODY FLUID 38 U/L; GLUCOSE BODY FLUID 22 mg/dL; TOTAL PROT BODY FLUID 6.5 g/dL
[2018-09-26 12:14] LABS: LDH BODY FLUID 1100 U/L
[2018-09-26 12:17] LABS: BODY FLUID SOURCE PLEURAL FLUID; WBC BF 309 /cumm
[2018-09-26 12:18] LABS: MONOS 94 %; POLYS 6 %
[2018-09-26] MEDS: ATIVAN IV PRN (12:42)
--- NOTE | 2018-09-26 12:58 | Diag Imaging Result Doc PS360 ---
EXAM: CHEST-2 VIEWS HISTORY: thoracentesis TECHNIQUE: Inspiratory and expiratory chest, two views COMPARISON: 9:47 AM FINDINGS: No postprocedural pneumothorax. Loculated fluid remains on the left. Mild cardiomegaly. IMPRESSION: No postprocedural pneumothorax. Electronically signed by Andrew Portillo 09/26/2018 12:56 PM
--- NOTE | 2018-09-26 13:43 | PROVIDER PROGRESS NOTE ---
Progress Note Pulmonary additional note. Post thoracentesis 65 cc exudative fluid. Given the loculation nature of fluid, will repeat imaging with CT in a few days. If not improving, will consider consulting surgery for chest tube vs decortication.
[2018-09-26] MEDS: TYLENOL PO PRN (13:55)
--- NOTE | 2018-09-26 19:41 | INFECTIOUS DISEASE PROGRESS NO ---
DATE: 09/26/2018 PRESENT ILLNESS: The patient has Staph hominis bacteremia, the exact origin of which is uncertain to me. She recently had pericarditis that required a pericardial window. She also has had pneumonia and possibly she has endocarditis. The patient does have in addition to pneumonia pleural fluid. MEDICATIONS: This is the third day of treatment with Ancef to treat the patient's bacteremia. Day #1 of treatment is the first day that the patient's blood cultures turn negative. PHYSICAL EXAMINATION: Vital Signs: Temperature is 100.3, pulse is 90, respirations 18, blood pressure 125/88. General: This is a fairly healthy-appearing middle-aged female. She is alert today. Head, Eyes, Ears, Nose and Throat: She can hear my spoken words and see near objects. She does not have any white patches on her tongue. Neck: The patient does not have any pain when she moves her neck. Lungs: The patient is clear in the right lung. There are decreased breath sounds in the left lower lobe. Cardiovascular: Regular heart rate. Abdomen: Soft and nontender. Abdomen: Soft and nontender. Neurologic: The patient is alert. She can move her extremities. There is no tremor. LAB AND X-RAY: The pleural fluid white blood cell count was 309, with 94% of the cells being mononuclear. ASSESSMENT AND PLAN: I agree with Dr. Gabriel's plan on the patient. The plan is to continue treating with Kefzol. There has been a thoracentesis done today and fluid was obtained. The plan will be furthermore in a couple of days. The CAT scan will be repeated and if fluid is still present, then possibly the patient will have a chest tube inserted or surgeon will perform decortication. Also, the patient has had an echocardiogram today, to look for the possibility of endocarditis, but the results have not been put on the chart at this time. The plan will be also to repeat the patient's chest x-ray to see if the possible pneumonia has cleared. COMORBIDITIES: The patient recently had pericarditis with which required a pericardial window. She also has a history of cigarette smoking. cc: MD Victor Hugo Long MD
[2018-09-26] MEDS: DESYREL PO SCH (20:05)
[2018-09-26] MEDS: XANAX PO PRN (20:12)
[2018-09-27] MEDS: DUONEB (A & A) INH SCH ×4 (03:14→15:39)
[2018-09-27] MEDS: TYLENOL PO PRN ×2 (03:46→16:07)
[2018-09-27] MEDS: ULTRAM PO SCH ×3 (04:25→23:27)
[2018-09-27] MEDS: KEFZOL 2 GM in D5W 50 ML IV SCH ×4 (04:59→20:26)
[2018-09-27] MEDS: KEFZOL 1 GM/D5W 1 GM/50 ML IVPB ONE ×2 (05:35→05:48)
[2018-09-27] MEDS: COLCRYS PO SCH ×2 (08:34→20:26)
--- NOTE | 2018-09-27 09:36 | PROGRESS NOTE ---
DATE: 09/27/2018 Ms. Colvin is doing better. She is feeling better. She had a repeat chest x-ray after thoracentesis yesterday and it does not show any pneumothorax or pleural fluid. She had some elevated white blood cells as well as LDH level. Further plan will depend on the repeat CT scan. In the meantime, she will get IV Kefzol for her pneumonia. cc: Victor Hugo Coronado MD
[2018-09-27] MEDS: ATIVAN IV PRN (12:54)
--- NOTE | 2018-09-27 15:57 | INFECTIOUS DISEASE PROGRESS NO ---
DATE: 09/27/2018 PRESENT ILLNESS: Ms. Vinicius villa is being treated for a Staph hominis bacteremia. She has also had a recent pericardial window due to pericarditis. There may also be a pneumonia. She is status post thoracentesis with pleural fluid removed from the left side. There is also the possibility of endocarditis. We are awaiting results of the echocardiogram. MEDICATIONS: She is receiving cefazolin 2 g IV every 8 hours. Based on her sterile blood cultures, today is day 4 of treatment for her bacteremia. PHYSICAL EXAMINATION: Vital: Vital signs temp is 99, pulse rate 85, respiratory rate 14, blood pressure 115/76. O2 sats 94% on room air. General: This is a fairly healthy- appearing middle- aged female. She is lying in bed, currently in no acute distress. HEENT: Atraumatic, normocephalic. Oral mucous membranes are pink and moist. She is edentulous. Cardiovascular: Heart rate and rhythm are regular. Normal sinus rhythm on the monitor. Respiratory: Lung sounds are clear to auscultation in the upper and middle lobes. Diminished to the left lower lobe. Abdomen: Soft, round and nontender. Bowel sounds are active. Integumentary: Skin is warm and dry. There is a dressing in place to the right flank from the previous thoracentesis, which is dry and intact. Neurologic: She is awake, alert, oriented. Able to ambulate without assistance. LABORATORY AND X-RAY: None available today. ASSESSMENT AND PLAN: Ms. Colvin is being treated for Staph hominis bacteremia and a possible pneumonia and endocarditis. At this point, we are awaiting the results of the echocardiogram as well as the final cultures of her pleural fluid. Based on her sterile blood cultures, today is day 4 of treatment for her bacteremia. We will continue cefazolin as ordered. She will need a 2 week course of treatment, or more if there is an endocarditis. These plans have been discussed with and recommended by Dr. Mccollum. COMORBIDITIES: For Ms. Colvin include history of cigarette smoking and a recent pericarditis with pericardial window. Dictated by CHELE Borges for James Mccollum MD cc: MD Victor Hugo Long MD MTDD
[2018-09-27] MEDS: DESYREL PO SCH (20:26)
[2018-09-27] MEDS: XANAX PO PRN (20:29)
[2018-09-27] MEDS: ZOFRAN IV PRN (20:42)
[2018-09-28] MEDS: DUONEB (A & A) INH SCH ×6 (02:42→19:00)
[2018-09-28] MEDS: ULTRAM PO SCH ×3 (05:08→21:04)
[2018-09-28] MEDS: KEFZOL 2 GM in D5W 50 ML IV SCH ×3 (05:09→22:07)
[2018-09-28] MEDS: COLCRYS PO SCH ×2 (09:00→21:04)
--- NOTE | 2018-09-28 09:39 | PROGRESS NOTE ---
DATE: 09/28/2018 Ms. Colvin is recovering from pneumonia. She is on IV Kefzol. She is to have CT scan of the chest to follow up on the pleural effusion. This is going to be done today and follow after that. cc: Victor Hugo Coronado MD
--- NOTE | 2018-09-28 10:00 | Diag Imaging Result Doc PS360 ---
EXAM: CT THORAX W/O CONTRAST HISTORY: SOB TECHNIQUE: CT chest without contrast COMPARISON: 09/22/2018 FINDINGS: There are multiloculated fluid collections on the left. These are similar in size with the exception of the lowest one posteriorly on the left which is smaller. There is a tiny pericardial effusion. Infiltrates and atelectasis remain in the left lung. These are slightly less prominent. The right lung is well expanded and clear. No thoracic aortic aneurysm. Stable mediastinal adenopathy. IMPRESSION: Slightly improved expansion of the left lung with interval decrease in the size of the fluid collection in the left lung base. This exam was performed using automated exposure control, adjustment of mA or kV according to patient size, and/or use of iterative reconstruction technique. Electronically signed by Andrew Portillo 09/28/2018 9:58 AM
[2018-09-28] MEDS: ATIVAN IV PRN (15:27)
[2018-09-28] MEDS: XANAX PO PRN (21:03)
[2018-09-28] MEDS: DESYREL PO SCH (21:04)
[2018-09-29] MEDS: DUONEB (A & A) INH SCH ×8 (00:36→22:41)
[2018-09-29] MEDS: ULTRAM PO SCH ×3 (05:14→20:55)
[2018-09-29] MEDS: KEFZOL 2 GM in D5W 50 ML IV SCH ×3 (05:44→20:55)
[2018-09-29] MEDS ORDERED: DUONEB (A & A) ONE (07:28)
[2018-09-29] MEDS: COLCRYS PO SCH ×2 (09:27→20:55)
[2018-09-29] MEDS: ATIVAN IV PRN (09:32)
--- NOTE | 2018-09-29 12:32 | PROGRESS NOTE ---
DATE: 09/29/2018 SUBJECTIVE: Ms. Colvin's pneumonia is not improving. She has loculated pleural fluid. She had a repeat CT scan done yesterday which did show slightly improved expansion in the left lung with interval decrease in the size of the fluid that was because of thoracentesis that was done by Dr. Gabriel. I got a report from Dr. Navarro, who told me that he found a report from the previous admission with malignant pericardial fluid that was aspirated that did reveal the malignant cells, however the pericardial biopsy was negative. I have told her that she most probably has cancer. We are going to try to consult Dr. Castaneda today. cc: Victor Hugo Coronado MD
--- NOTE | 2018-09-29 14:29 | HEMO/ONC CONSULTATION ---
DATE: 09/29/2018 CHIEF COMPLAINT: We are being consulted regarding Ms. Colvin's malignant pericardial fluid. HISTORY OF PRESENT ILLNESS: Ms. Colvin is recovering from pneumonia and pleural effusions. She is being treated for Staph hominis bacteremia. She also has had a recent pericardial window due to pericarditis. She is status post thoracentesis with pleural fluid removed from the left side. There is also the possibility of endocarditis. We are awaiting results of the echocardiogram. We have been contacted by Dr. Coronado to evaluate a previous report that showed malignant pericardial fluid that was aspirated that did reveal malignant cells. PAST MEDICAL HISTORY: Hypertension, anxiety, and gout. SOCIAL HISTORY: The patient has been a heavy smoker most of her life. She stopped smoking in May. Denies alcohol. ALLERGIES: She is not allergic to any medications. HOME MEDICATIONS: Amlodipine, Alprazolam, Tramadol, Trazodone, metoprolol, and colchicine. PHYSICAL EXAMINATION: VITAL SIGNS: Temperature is 98.8, heart rate 84, respiratory rate 19, blood pressure is 114/76, and O2 saturation 94% on room air. GENERAL: Currently in no acute distress. HEENT: Oral mucous membranes are pink and moist. She is edentulous. CARDIOVASCULAR: S1 and S2 appreciated. Regular rate and rhythm. RESPIRATORY: Decreased breath sounds. Dullness to the right lower lobe. . GASTROINTESTINAL: Abdomen is soft and nontender. INTEGUMENTARY: Skin is warm and dry. NEUROLOGICAL: She is awake, alert, oriented, and able to ambulate without assistance. LYMPH: Small node noted to the left supraclavicular area. LABORATORY DATA: No recent laboratory data contributable. ASSESSMENT AND PLAN: 1. Bacteremia and pneumonia: Continue to treat per Infectious Disease recommendations. 2. Endocarditis: Awaiting results of echocardiogram. 3. 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 Follow up on pathology and obtain additional lab data. Recommending PET scan. 4. Lymph node: Small enlarged lymph node to left supraclavicular area. Recommending biopsy. 5. Patient needs a port a cath placed. Dictated by CHELE Crowe for Usama Castaneda MD Patient seen and examined. As above. Discussed with Dr. Coronado. Patient on her previous admission and underwent pericardial window for pericardial effusion with tamponade. Biopsy was negative. Fluid was positive for metastatic carcinoma. Pathologist was unable to tell the origin of this carcinoma. This admission, patient is being treated for pneumonia, bacteremia and pleural effusion. CT scan reveals loculated effusions on the right side. Thoracentesis was performed and only about 65 mL was removed. Pathology is pending. On examination she has a palpable lymph node in the left supraclavicular axilla. I have discussed with Dr. Navarro to proceed with an excisional biopsy. Also plan for a Port-A-Cath placement when possible from infectious disease standpoint. We will plan for a PET scan outpatient. Usama Castaneda M.D. cc: MD Victor Hugo Daugherty MD [facility]ITALBethany
--- NOTE | 2018-09-29 20:35 | INFECTIOUS DISEASE PROGRESS NO ---
DATE: 09/29/2018 PRESENT ILLNESS: The patient has Staphylococcus hominis bacteremia and probable pneumonia as well due to hematogenous seeding of the lung. Unfortunately, the patient's pericardial fluid showed malignant cells, the origin of which is not certain at this time. MEDICATIONS: The patient is on Ancef. This is day number 6 of Ancef treatment with day 1 being the first day that the patient's repeat blood cultures were sterile. PHYSICAL EXAMINATION: Vital Signs: Temperature is 98.8 degrees, pulse 84, respirations 19, blood pressure 114/76. General: This is a healthy-appearing middle-aged female. She is in no acute distress. Head/Eyes/Ears/Nose/Throat: She can hear my spoken words and see near objects. She does not have any white patches in her mouth. Neck: No pain when she moves her neck. Lungs: They were clear to auscultation except for decreased breath sounds in the left lower lobe. Abdomen: Soft and nontender. Neurologic: The patient is alert. She can move her extremities. There is no tremor. LABORATORY AND X-RAY STUDIES: CT scan of the chest today shows left lung infiltrate and also multiloculated fluid collections as well. The patient's pleural fluid AFB and fungal smears were negative. The white blood cell count in the pleural fluid was 309. ASSESSMENT AND PLAN: The patient has Staphylococcus bacteremia with an associated pneumonia. For that, I plan on continuing cefazolin. Unfortunately, the patient has a malignancy with metastases. COMORBIDITIES: The patient smokes cigarettes, and as mentioned above she appears to have a cancer with metastatic disease. cc: MD Victor Hugo Long MD
[2018-09-29] MEDS: DESYREL PO SCH (20:55)
[2018-09-29] MEDS: XANAX PO PRN (21:00)
--- NOTE | 2018-09-29 21:14 | GENERAL SURGERY PROGRESS NOTE ---
DATE: 09/29/2018 SUBJECTIVE: The patient has no new complaints this morning. I was consulted originally for left chest tube or decortication. Chart review revealed a pathology report signed out on 06/20/2018, showing her pericardial fluid was positive for metastatic carcinoma, so now I have discussed with Dr. Castaneda the etiology of this carcinoma is unclear. He wants me to place a port and to biopsy a supraclavicular lymph node. OBJECTIVE: Vital Signs: She is afebrile. Vital signs are stable. General: She is awake, alert, oriented x4. Lymph: Her cervical and supraclavicular areas were examined, and I do feel a palpable slightly enlarged node in the left supraclavicular region. ASSESSMENT AND PLAN: A 58-year-old female with metastatic carcinoma of unknown primary, possibly pulmonary would be my first inclination. She does have supraclavicular lymphadenopathy. We will excise this lymph node in the operating room on Tuesday, and place a Port-A-Cath for future chemotherapy. I discussed the risks and benefits with her, including bleeding, infection, pneumothorax, and other imponderables. She understands and agrees to proceed. cc: MD Victor Hugo Tubbs MD
--- NOTE | 2018-09-30 03:06 | PULMONOLOGY PROGRESS NOTE ---
DATE: 09/29/2018 SUBJECTIVE: Patient is awake, alert, and conversant. She denies symptoms at rest. OBJECTIVE: Vital Signs: Maximum temperature in the last 24 hours 102.1 degrees. Blood pressure 114/76, heart rate 84, respiratory rate 19, oxygen saturation 94%. HEENT: Pupils are equal and reactive. Oropharynx appears clear. Neck: Supple. Chest: Reveals diminished breath sounds throughout the left lung. Cardiac: S1, S2. Abdomen: Soft. Extremities: Without edema. LABORATORIES: CT scan of the thorax reveals multiple loculated fluid collections on the left. One is smaller at the site of thoracentesis. No growth. No microbiology from the pleural fluid. IMPRESSION: A 58-year-old with 1. Recurrent pleural effusion. 2. Previous pericardial window with malignant cells identified on fluid. 3. Bacteremia. 4. Left supraclavicular lymph node, pending biopsy. PLAN: 1. Continue workup for primary of unknown origin. 2. Check CEA level in the morning. cc: MD Victor Hugo Frazier MD MTDD
[2018-09-30] MEDS: DUONEB (A & A) INH SCH ×6 (03:24→23:04)
[2018-09-30 03:33] LABS: PH BODY FLUID 7
[2018-09-30 03:37] LABS: SPECIMEN PLEURAL FLUID
[2018-09-30] MEDS: KEFZOL 2 GM in D5W 50 ML IV SCH ×3 (04:58→20:07)
[2018-09-30] MEDS: ULTRAM PO SCH ×3 (05:01→20:20)
[2018-09-30] MEDS: ATIVAN IV PRN (05:04)
[2018-09-30] MEDS: COLCRYS PO SCH ×2 (09:40→20:07)
[2018-09-30] MEDS: TYLENOL PO PRN ×2 (09:46→18:32)
[2018-09-30] MEDS: ZOFRAN IV PRN (18:53)
[2018-09-30] MEDS: XANAX PO PRN (20:07)
[2018-09-30] MEDS: DESYREL PO SCH (20:07)
[2018-10-01] MEDS: DUONEB (A & A) INH SCH ×6 (03:28→23:30)
--- NOTE | 2018-10-01 03:33 | PROGRESS NOTE ---
DATE: 09/30/2018 VITAL SIGNS: Temperature 99 degrees, heart rate 99, respiration 18, blood pressure 102/80. O2 saturation on room air 97%. LABORATORY: Elevated CEA antigen of 102.5. C-reactive protein elevated at 94.5 on 09/24. Pleural fluid pathology is pending. The patient states she feels better and is less short of breath. Pericardial fluid on a previous hospitalization revealed some malignant cells in the fluid. She has endocarditis, which is improving. There is an enlarged left supraclavicular node. Biopsy is planned for Tuesday by Surgery. The patient states she has never had a colonoscopy. If supraclavicular node is negative, other studies such as PET scan or colonoscopy will be considered. cc: MD Victor Hugo Mccain MD
--- NOTE | 2018-10-01 03:43 | HEMO/ONC PROGRESS NOTE ---
DATE: 09/30/2018 SUBJECTIVE: The patient is comfortable in bed this morning. She was easy to arouse and converse with. She states her pain is very tolerable and minimal this morning. The patient is aware that she will possibly have surgery on her lymph node on Tuesday morning as well as port placement. She has a supportive family. OBJECTIVE: Vital Signs: Temperature 99.7 degrees, pulse rate is 80, respiratory rate is 18, blood pressure is 115/70, she is 93% on room air. She states 0/10 pain. General: Currently in no acute distress. HEENT: Oral mucous membranes are pink and moist. She is edentulous. Cardiovascular: S1, S2 appreciated. Regular rate and rhythm. Respiratory: Decreased breath sounds. Dullness to the right lower lobe. Gastrointestinal: Abdomen is soft and nontender. Integumentary: Skin is warm and dry. Neurologic: Awake, alert, and oriented x3. She ambulates without any assistance. Lymphatic: There is a small node noted to the left supraclavicular area that is movable, not tender to pain. LABORATORY DATA: Her CEA is 102.5. ASSESSMENT AND PLAN: 1. Pneumonia, bacteremia, and pleural effusion. Continue treatment per Infectious Disease recommendations. 2. Endocarditis: Continue and await results of echocardiogram. 3. Carcinoma of unknown primary: Awaiting the pathology of the pleural fluid from the thoracentesis. We will follow up on pathology and obtain additional lab data. Recommending an outpatient PET scan once discharged. 4. Lymph node: Small enlarged lymph node to the left supraclavicular area will be biopsied on Tuesday with Dr. Navarro. 5. Port-A-Cath. We have requested a Port-A-Cath placement on Tuesday as well. Dictated by CHELE Crowe for Usama Castaneda MD Patient seen and examined. As above. Usama Castaneda M.D. cc: MD Victor Hugo Daugherty MD MTDD
[2018-10-01] MEDS: KEFZOL 2 GM in D5W 50 ML IV SCH ×3 (05:19→20:54)
[2018-10-01] MEDS: ULTRAM PO SCH ×3 (05:19→20:58)
[2018-10-01] MEDS: PEPCID PO SCH ×2 (08:08→20:53)
[2018-10-01] MEDS: COLCRYS PO SCH ×2 (08:08→20:53)
--- NOTE | 2018-10-01 08:41 | PULMONOLOGY PROGRESS NOTE ---
DATE: 09/30/2018 SUBJECTIVE: The patient is awake, alert, and conversant. She is without specific complaints. She reports she is ready to undergo her port placement and neck biopsy on Tuesday. OBJECTIVE: Vital Signs: Maximum temperature in the last 24 hours was 99.7 degrees, blood pressure 111/72, heart rate 82, respiratory rate 18, oxygen saturation 97%. HEENT: Pupils are equal and reactive. Oropharynx is clear. Neck: Some firmness in the left supraclavicular region. Chest: Diminished breath sounds on the left. Cardiac: S1, S2. Abdomen: Soft. Extremities: Without edema. LABORATORY DATA: CEA level is markedly elevated at 102.5. IMPRESSION: A 58-year-old with: 1. Malignancy from unknown origin. Lung is suspected. 2. Adenopathy. 3. Recurrent pleural effusion. 4. Bacteremia. 5. Marked elevation in CEA level. PLAN: 1. Continue antibiotics per Infectious Disease. 2. Anticipate lymph node biopsy and port placement by Dr. Navarro on Tuesday. 3. Anticipate the initiation of treatment for cancer (lung cancer is suspected) per Dr. Castaneda. cc: MD Victor Hugo Frazier MD
[2018-10-01] MEDS: ZOLOFT PO SCH (11:54)
[2018-10-01] MEDS: ZOFRAN IV PRN ×2 (15:11→17:13)
--- NOTE | 2018-10-01 15:38 | PROGRESS NOTE ---
DATE: 10/01/2018 VITAL SIGNS: Temperature 99 degrees, heart rate 75, respirations 16, blood pressure 119/80, O2 saturation on room air 96%. Chest: Clear except for mild decrease in breath sounds at the left base. She is currently on 2 g cefazolin q.8 hours IV for pneumonia. There is carcinoma of undetermined origin. Excisional biopsy of left supraclavicular node and placement of a port will be done by Dr. Navarro tomorrow. AFB and fungal cultures are pending. There was 1 positive blood culture, Staph hominis, probably contaminant. Urine revealed no growth. PLAN: Determine source of cancer and continue treatment of pneumonia with intravenous antibiotics. cc: MD Victor Hugo Mccain MD
[2018-10-01] MEDS: ATIVAN IV PRN (17:12)
[2018-10-01] MEDS: TYLENOL PO PRN (17:12)
--- NOTE | 2018-10-01 17:56 | PULMONOLOGY PROGRESS NOTE ---
DATE: 10/01/2018 SUBJECTIVE: The patient is awake, alert and conversant. She is without new complaints. OBJECTIVE: Vital Signs: The patient has been afebrile for the last 24 hours. Blood pressure 119/80, heart rate 75, respiratory rate 16, oxygen saturation 96%. HEENT: Pupils are equal and reactive. Oropharynx is clear. Neck: Supple. Chest: Reveals diminished breath sounds in the left lower lobe. LABORATORY: Microbiology data from pleural fluid remains negative. No new chemistries or radiographs today. IMPRESSION: A 58-year-old with: 1. Elevation in CEA with malignant pericardial effusion. Cancer of unknown origin (lung is suspected). 2. Cervical lymphadenopathy. 3. Recurrent pleural effusion. 4. Bacteremia. PLAN: 1. Anticipate cervical lymph node biopsy and port placement tomorrow by Dr. Navarro. 2. Continue antibiotics per infectious disease. 3. Anticipate initiation of chemotherapy as an outpatient per Dr. Castaneda. cc: MD Victor Hugo Frazier MD
[2018-10-01] MEDS: DESYREL PO SCH (20:53)
[2018-10-01] MEDS: XANAX PO PRN (20:53)
[2018-10-02] MEDS: DUONEB (A & A) INH SCH ×5 (03:38→23:29)
[2018-10-02] MEDS: ULTRAM PO SCH ×3 (05:20→22:10)
[2018-10-02] MEDS: KEFZOL 2 GM in D5W 50 ML IV SCH ×3 (05:20→20:19)
--- NOTE | 2018-10-02 09:44 | PROGRESS NOTE ---
DATE: 10/02/2018 SUBJECTIVE: Ms. Colvin has recurrent pleural effusion and has possible pneumonia or tumor on the left side. She has enlargement of the left supraclavicular lymph gland, which is going to be biopsied today by Dr. Navarro. She had malignant pericardial effusion. She is running about 100 degrees temperature. Lungs sound slightly better. She is feeling better as far as the breathing goes. cc: Victor Hugo Coronado MD
[2018-10-02] MEDS ORDERED: DIPRIVAN 1% ONE (12:06)
[2018-10-02] MEDS ORDERED: XYLOCAINE-MPF 2% ONE (12:07)
[2018-10-02] MEDS ORDERED: NEOSTIGMINE ONE (12:11)
[2018-10-02] MEDS ORDERED: ROBINUL ONE (12:11)
[2018-10-02] MEDS ORDERED: DECADRON ONE (12:14)
[2018-10-02] MEDS ORDERED: ZOFRAN ONE ×2 (12:14→13:38)
[2018-10-02] MEDS ORDERED: SENSORCAINE-MPF 0.5%/EPI 1:200,000 ONE (13:12)
[2018-10-02] MEDS ORDERED: NS 250 ML ONE (13:12)
[2018-10-02] MEDS ORDERED: XYLOCAINE 1%/EPI 1:100,000 ONE (13:12)
[2018-10-02] MEDS: DILAUDID ONE ×3 (14:30→16:20)
--- NOTE | 2018-10-02 14:48 | Diag Imaging Result Doc PS360 ---
EXAM: CHEST-PORTABLE HISTORY: s/p port placement TECHNIQUE: Portable chest COMPARISON: 08/28/2018 FINDINGS: There are infiltrates and atelectasis in the left lung with loculated fluid similar to the prior exam. The heart remains mildly prominent. There is a right jugular portacatheter on the current exam. No postprocedural pneumothorax. IMPRESSION: No postprocedural pneumothorax. Electronically signed by Andrew Portillo 10/02/2018 2:46 PM
[2018-10-02] MEDS: ZOFRAN IV PRN (15:48)
[2018-10-02] MEDS: COLCRYS PO SCH ×2 (15:51→20:20)
[2018-10-02] MEDS: PEPCID PO SCH ×2 (15:51→20:20)
[2018-10-02] MEDS: ZOLOFT PO SCH (15:52)
--- NOTE | 2018-10-02 17:55 | HEMO/ONC PROGRESS NOTE ---
DATE: 10/02/2018 SUBJECTIVE: The patient says her shortness of breath has slightly improved. The patient is going for a biopsy later today. OBJECTIVE: Vital Signs: Temperature of 100.0 degrees, heart rate 87, respiratory rate 18, blood pressure 162/75, saturating 97% on nasal cannula. General: Patient is awake, lying in bed. No acute distress noted. HEENT: Anicteric. Pupils PERRLA. Mucous membranes appear to be moist. Chest: Bilateral breath sounds diminished bilaterally. Abdomen: Soft, nontender. Bowel sounds present in all 4 quadrants. Neurologic: Alert and oriented x3. No focal deficits noted. ASSESSMENT AND PLAN: 1. Carcinoma of unknown primary: Awaiting pathology results at this time. Patient going for a biopsy later today. Plan PET outpatient. We will continue to follow up on those results. 2. Pneumonia and pleural effusion: Continue recommendations per primary medical team and pulmonology. 3. Small enlarging lymph node left supraclavicular area: Patient scheduled for biopsy today. Plan of care discussed with Dr. Castaneda. Dictated by CHELE Brennan for Usama Castaneda MD [facility]
--- NOTE | 2018-10-02 17:57 | OPERATIVE NOTE ---
PROCEDURE DATE: 10/02/2018 PREOPERATIVE DIAGNOSES: 1. Carcinoma of unknown primary. 2. Supraclavicular lymphadenopathy. POSTOPERATIVE DIAGNOSES: 1. Carcinoma of unknown primary. 2. Supraclavicular lymphadenopathy. PROCEDURE: 1. Insertion of [id number] with fluoroscopic and ultrasound guidance. 2. Excisional biopsy of left supraclavicular lymph node. SURGEON: Robert Navarro MD. ANESTHESIA: General. ESTIMATED BLOOD LOSS: 5 mL. COMPLICATIONS: None apparent. SPECIMENS: Left supraclavicular lymph node. FINDINGS: The left supraclavicular lymph node was enlarged and roughly 2 cm in greatest dimension. The right internal jugular vein was found with ultrasound. It was compressible, patent, and without thrombus. Fluoroscopy revealed proper placement of the wire, followed by the catheter into the right atrium with the tip of the catheter positioned at the superior vena cava right atrial junction. TECHNIQUE: The patient was brought to the operating room and placed supine on the table. General anesthesia was induced. She was prepped and draped in usual sterile fashion. Quarter percent Marcaine with epinephrine was used to anesthetize our incisions. A 1 cm incision was made in the right neck overlying the internal jugular vein which was visualized with ultrasound. The vein was then accessed with a needle under ultrasound guidance. The wire passed through the needle easily and was confirmed to be in the right atrium with fluoroscopy. The wire was fixed to the drape. I then made a counter incision below the right clavicle with a knife followed by cautery down to the anterior pectoral fascia. A pocket was created anterior to the fascia with blunt finger dissection and cautery. I then tunneled the catheter subcutaneously from the lower incision out through the neck incision. The dilator and sheath were passed over the wire. The wire and dilator were removed. The catheter was passed into the sheath. The sheath was removed. The tip of the catheter was positioned appropriately with fluoroscopy. The catheter was then cut to size and fixed to the port. The port was anchored to the fascia with 2-0 Surgipro at 2 o'clock, 6 o'clock, 10 o'clock. The port was accessed. It fei back blood easily. It was flushed with heparin saline easily. The incision was closed with interrupted subcutaneous 3-0 Polysorb and a running 4-0 subcuticular Monocryl and Steri-Strips and this closed the chest and neck incisions on the right side. I then turned my incision to the lymph node biopsy. The lymph node was palpable in the left supraclavicular region. The skin was anesthetized with Marcaine. An incision was made with a 15 blade down through the dermis sharply. Cautery was used to continue dissection down through the subcutaneous fat. The external jugular vein was retracted medially and posterolateral to it in the deep supraclavicular soft tissues I found the palpable node. It was excised from the surrounding tissue with cautery. There were no signs of any bleeding in the wound bed. I closed the skin with interrupted subcuticular 3-0 Polysorb and Steri-Strips. There were no apparent complications. She was awakened in stable condition and transferred to the recovery room. cc: MD Victor Hugo Tubbs MD
--- NOTE | 2018-10-02 17:57 | INFECTIOUS DISEASE PROGRESS NO ---
DATE: 10/02/2018 PRESENT ILLNESS: The patient has a Staph hominis pneumonia with an associated bacteremia. The patient has developed oral candidiasis. MEDICATIONS: This is day 9 of treatment with Ancef. PHYSICAL EXAMINATION: Vital Signs: Temperature is 99.1 degrees, pulse 72, respirations 16, blood pressure 140/87. General: This is a healthy-appearing middle-aged female. She is in no acute distress. She went to surgery today to have a Port-A-Cath put in and also a lymph node biopsy. Head/eyes/ears/nose/throat: She can hear my spoken words and see near objects. She does have a white coating on her tongue. Lungs: Were clear on the right side and on the left side there were rales. Thorax: Patient has a newly placed Port-A-Cath on the right upper part of her chest. Abdomen: Soft and nontender. Cardiovascular: Heart rate is regular. Neurologic: The patient is awake. She can move her extremities. There is no tremor. LAB AND X-RAY: Chest x-ray shows left infiltrates and atelectasis. The right lung is clear. The patient does not have any laboratory studies for today. ASSESSMENT AND PLAN: The patient has Staph aureus bacteremia with an associated pneumonia. She has had 9 days of treatment with Ancef and she will need 5 more days to complete a 2-week treatment course. The patient has developed oral candidiasis which I will treat with nystatin swish and swallow. COMORBIDITIES: Unfortunately, the patient appears to have a malignancy most likely in the lung with probable metastatic spread. She also smokes cigarettes. cc: MD Victor Hugo Long MD MTDD
--- NOTE | 2018-10-02 19:21 | INFECTIOUS DISEASE PROGRESS NO ---
DATE: 10/02/2018 ADDENDUM: On physical exam, the patient had white coating of the tongue, which I think is being caused by oral candidiasis. I have ordered nystatin swish and swallow 4 times a day for the patient. cc: MD Victor Hugo Long MD
[2018-10-02] MEDS: TYLENOL PO PRN (20:19)
[2018-10-02] MEDS: DESYREL PO SCH (20:20)
[2018-10-02] MEDS: MYCOSTATIN SUSP PO SCH (21:30)
[2018-10-03] MEDS: DUONEB (A & A) INH SCH (03:44)
[2018-10-03] MEDS: ZOFRAN IV PRN ×2 (03:49→07:24)
[2018-10-03] MEDS: ULTRAM PO SCH ×2 (04:24→13:37)
[2018-10-03] MEDS: KEFZOL 2 GM in D5W 50 ML IV SCH ×2 (05:10→13:36)
[2018-10-03 07:03] LABS: BASO# 0.01 X1000 (0.0-0.2); BASO% 0.2 % (0.0-0.8); EOS# 0.07 X1000 (0.0-0.7); EOS% 1.1 % (0.0-10.0); HEMATOCRIT 34.5 % (37.0-47.0); HEMOGLOBIN 11.1 g/dL (12.0-16.0); LYMPH# 0.91 X1000 (1.2-3.4); LYMPH% 14.9 % (20.5-51.1); MCH 28.6 PG (27-31); MCHC 32.2 g/dL (33-37); MCV 88.9 FL (81-99); MONO% 13.1 % (1.7-9.3); MPV 9.4 FL (7.4-10.4); NEUT# 4.31 X1000 (1.4-6.5); NEUT% 70.7 % (42.2-75.2); PLT 290 X1000 (130-400); RBC 3.88 XMIL (4.2-5.4); RDW 12.7 % (11.5-14.5)
[2018-10-03 07:24] LABS: AGAP 10; BUN 10 mg/dL (8-22); CALCIUM 8.7 mg/dL (8.8-10.2); CHLORIDE 101 mmol/L (98-107); COSMO 273; CREATININE 0.9 mg/dL (0.5-0.9); ESTIMATED GFR > 60; GLUCOSE 98 mg/dL (70-104); SODIUM 137 mmol/L (136-145); TCO2 26 mmol/L (25-35)
[2018-10-03 08:16] VITALS: BP 147/96
[2018-10-03] MEDS: PEPCID PO SCH (09:12)
[2018-10-03] MEDS: ZOLOFT PO SCH (09:12)
[2018-10-03] MEDS: TYLENOL PO PRN (09:12)
[2018-10-03] MEDS: COLCRYS PO SCH (09:12)
[2018-10-03] MEDS: MYCOSTATIN SUSP PO SCH ×2 (09:12→13:36)
--- NOTE | 2018-10-03 14:00 | PROGRESS NOTE ---
DATE: 10/03/2018 Ms. Colvin had a biopsy of the left-sided supraclavicular lymph gland yesterday by DR. Navarro. She is doing better. We are going to discharge her today. -9 cc: Victor Hugo Coronado MD
--- NOTE | 2018-10-03 20:30 | GENERAL SURGERY PROGRESS NOTE ---
DATE: 10/03/2018 SUBJECTIVE: The patient is feeling fine this morning. No acute problems overnight. OBJECTIVE: Vital Signs: She is afebrile. Vital signs are stable. General: She is awake, alert, and oriented x4 in no acute distress. Her chest and neck exam reveals intact incisions for the port and biopsy. No signs of bleeding or hematoma. IMAGING: Chest x-ray yesterday showed no postprocedural pneumothorax. ASSESSMENT/PLAN: A 58-year-old female with carcinoma of unknown primary, now status post port placement and cervical supraclavicular lymph node biopsy. Path is pending. We are available as needed. cc: MD Victor Hugo Tubbs MD
--- NOTE | 2018-10-04 09:11 | DISCHARGE SUMMARY ---
ADMISSION DATE: 09/17/2018 DISCHARGE DATE: 10/03/2018 HISTORY: Ms. Colvin who is a 58-year-old female came with pneumonia on the left side. Laboratory Data in the hospital, her chest x-ray showed pneumonia on the left side and loculated pleural effusion. CT scan of the chest also showed a moderate amount of pleural fluid on the left side, some of which appeared to be loculated. There was compression atelectasis of the left lung, mediastinal adenopathy mild was noted. Bilateral supraclavicular adenopathy most prominent on the left side was noted. Laboratory Data revealed the white count was normal. Hemoglobin dropped from 12.7 to 11.1. INR was 1.11. Chemistry profile was normal. Uric acid was 8.9. Her calcium was 8.9. Liver enzymes are normal. Carcinoembryonic antigen was 102.5, somewhat elevated. Urine showed large WBCs in pleural fluid. WBC count was 309 and LDH was 1100. AFB smear was negative. . Cytology smear Ldhwas elevated. She was treated with IV Zosyn and vancomycin. She was not improving. Pulmonary consult was made. Dr. Mccollum changed her to IV Kefzol, and later on a Pulmonary consult was made. Dr. Gabriel tried to do the thoracentesis, only 70 mL of fluid was out. Repeat CAT scan was almost unchanged while we were waiting and treating her with IV antibiotics. We found a report of pericardial fluid, which was done in the past that showed metastatic carcinoma cells and decortication surgery by Dr. Navarro was postponed. Later on, we got an oncology consult. We got a left supraclavicular lymph gland biopsy, and as the treatment has not helped her, we decided to discharge her to be followed by Dr. Castaneda who will probably do the PET scan. After the biopsy results, further therapy will be decided. I will see Ms. Sara Colvin in the next week. FINAL DIAGNOSIS: Pulmonary nodules, probably carcinoma with left-sided pleural effusion. Pericardial fluid aspirated about 2 to 3 months ago showed metastatic cancer cells. The CEA level was elevated, and this is most probably malignancy. However, lymph node biopsy result is awaited. cc: MD OLEGARIO Srinivasan
== END 2018-10-03 14:34 | disposition home or self-care (01) | DRG 829 ==
LOC: ED 13:04 → 3N 15:16
PROVIDERS: ADMIT Internal Medicine; ATTEND Internal Medicine
CPT/HCPCS: 32421; 32555; 71010; 71020; 71045; 71046; 71250; 72100; 77001; 80048; 80053; 80202; 81001; 82150; 82378; 82550; 82565; 82945; 83605; 83615; 83880; 83986; 84157; 84484; 84550; 85025; 85610; 85651; 85730; 86140; 87040; 87070; 87077; 87088; 87102; 87116; 87186; 87205; 87206; 88305; 88312; 89051; 93005; 93306; 93308; 94640; 94760; 94761; 96365; 96375; 99285; A9270; C1788; J0690; J1100; J1170; J1885; J1940; J1956; J2060; J2405; J2543; J3370; J7030; J7040; J7050; J7060; Q9967

== ENCOUNTER 2019-01-16 06:51 | Observation (INO) ==
[2019-01-16 08:34] LABS: INR 1.01; PROTIME 13.5 Seconds (11.0-16.0); PTT 23.1 Seconds (22.3-41.8)
[2019-01-16] MEDS ORDERED: DILAUDID IV PRN (09:55)
[2019-01-16] MEDS ORDERED: ULTRAM ONE (09:56)
[2019-01-16] MEDS ORDERED: DILAUDID ONE (10:08)
--- NOTE | 2019-01-16 10:08 | Diag Imaging Result Doc PS360 ---
CT RENAL BX, [facility] - 01/16/2019 INDICATION: acute worsening of creatinine TECHNIQUE: The risks and benefits of the procedure were discussed with the patient. All questions were answered. Written and verbal informed consent was obtained. Overlying skin was prepped and draped in sterile fashion. Anesthesia was achieved with injection of 10 cc of 1% lidocaine. COMPARISON: CT from 10/12/2018 FINDINGS: Seven biopsy specimens were obtained of the posterior right kidney. Towards the end of the biopsy series, there was brisk bleeding. The post scan demonstrated a perinephric hematoma measuring about 10 x 4 cm. The procedure was ended and the patient was returned to outpatient surgery for further treatment. Dr. Santana and Dr. Abreu were notified. IMPRESSION: CT guided right renal biopsy complicated by a perinephric hematoma. Electronically signed by Сергей Alvarado 01/16/2019 10:06 AM
--- NOTE | 2019-01-16 13:35 | Diag Imaging Result Doc PS360 ---
US RENAL 2 (RETROPER) COMPLETE - 01/16/2019 INDICATION: recheck renal biopsy right TECHNIQUE: COMPARISON: CT biopsy from earlier today FINDINGS: There is a small right perinephric fluid collection compatible with the biopsy hematoma. This measures about 6 x 1 cm. This has decreased in size symmetrically since prior. There is no hydronephrosis. There are bilateral renal nodules and cysts. Renal sizes remain normal. Normal perfusion and color Doppler flow. The urinary bladder is normal. IMPRESSION: 1. Significant decrease in size of the right perinephric post biopsy hematoma. No hydronephrosis. 2. Small bilateral renal cysts and nodules stable from prior. Electronically signed by Сергей Alvarado 01/16/2019 1:33 PM
--- NOTE | 2019-01-16 13:54 | HISTORY AND PHYSICAL ---
CHIEF COMPLAINT: Perinephric hematoma, status post renal biopsy. HISTORY OF PRESENT ILLNESS: This is a 58-year-old female with a history of lung cancer, status post chemotherapy with subsequent perinephric hematoma. She is being followed by Dr. Santana and Dr. Castaneda. The patient underwent a CT-guided renal biopsy today and ultimately has developed a perinephric hematoma and is being admitted for further evaluation. PAST MEDICAL HISTORY: 1. Lung cancer. 2. Hypertension. 3. Anxiety. PAST SURGICAL HISTORY: Lymph node biopsy. SOCIAL HISTORY: She denies any alcohol, tobacco, or illicit drug use. ALLERGIES: No known drug allergies. HOME MEDICATIONS: A list will be obtained by the nursing staff. REVIEW OF SYSTEMS: Discussed with patient with pertinent positives stated in HPI. She denied any syncope, dizziness, chest pain, palpitations, any shortness of breath, cough, fever, chills, any nausea, vomiting, diarrhea, constipation, black or bloody vomitus or stools, hematuria dysuria frequency urgency. PHYSICAL EXAMINATION: GENERAL: This is a 58-year-old female who is sitting up in the bed in no distress. VITAL SIGNS: Blood pressure is 126/80 with heart rate of 60, respirations 16, temperature is 98.8 with room air saturations 98%. EYES: Pupils equal, round, react to light. EOMs are intact. Sclerae anicteric. HEENT: Head is normocephalic, atraumatic. Mucous membranes are moist. NECK: Supple. Trachea midline. She has no JVD. CARDIOVASCULAR: Regular rate and rhythm. S1 and S2 appreciated. EXTREMITIES: She has no lower extremity edema. Calves are nontender bilateral, peripheral pulses palpable x4 extremities. PULMONARY: Breath sounds clear. No increased work of breathing noted. Chest rise and fall symmetric respiration. Chest wall is nontender to palpation. GASTROINTESTINAL: Abdomen is soft, nontender, nondistended. Bowel sounds in all 4 quadrants. GENITOURINARY: She has no CVA or suprapubic tenderness. SKIN: Warm and dry with site right flank from entry of renal biopsy. Band-Aid is dry and intact with site clear. NEUROLOGIC: She is alert and oriented x3. ASSESSMENT: 1. Perinephric hematoma on the right, status post renal biopsy. 2. History of hypertension. 3. History of lung cancer followed by Dr. Castaneda. PLAN: The patient will be admitted to the hospital for close monitoring. telemetry. clear liquids at present. consult Dr. Abreu. CBC and renal profile daily. Dilaudid for pain. Zofran for nausea. renal ultrasound Plan discussed with Dr Jones Further treatments pending hospital course. Patient seen and examined by me face to face, all the laboratory, vitals signs and images were reviewed, patient presented due to a presence of a right perinephric hematoma during a renal biopsy procedure, she seems to be stable, not to much discomfort, we will get more images to follow the size of that hematoma, also will monitor the H and H, I agree with the rest of the SOIL CHECKER's assessment and plan, Isak Terry MD. Dictated by CHELE Patel for Isak Murillo MD cc: CHELE Patel MD MTDD
[2019-01-16] MEDS: ZOFRAN IV PRN ×2 (14:25→18:48)
--- NOTE | 2019-01-16 15:20 | HISTORY AND PHYSICAL ---
ADDENDUM: This is a 58-year-old female with a history of lung cancer status post chemotherapy, she underwent a CT-guided renal biopsy on the right side and she developed a perinephric hematoma, she has been admitted to follow up on that bleeding. Initial renal ultrasound at 7:31 a.m. showed a perinephric hematoma measuring around 10 x 4 cm, hemoglobin seems to be stable initially 10.6 now 10.4. Recent renal ultrasound the same day at 1 p.m., today showed a significant decrease in size of the right perinephric post biopsy hematoma measuring 6 x 1 cm. We will continue to monitor this patient closely, Dr. Abreu and Dr. Coronado will take care of this patient. Will do serial hemoglobin, patient is not complaining of pain or shortness of breath, dizziness, nausea or vomiting. I agree with the nurse practitioner's assessment and plan. cc: MD Victor Hugo Gimenez MD
--- NOTE | 2019-01-16 17:35 | PROGRESS NOTE ---
DATE: 01/16/2019 HISTORY: Miss Colvin is doing well. Her vital signs are stable. She had a right renal biopsy, and post biopsy she had a perinephric hematoma which was about 10 x 4 cm. However, the hematoma is slowly going down. The patient is feeling better. PHYSICAL EXAMINATION: vital signs: Vital signs are stable. abdomen: Abdomen is soft, nontender. renal: There is no renal area of pain or tenderness. Overall condition is stable. We will continue with the current management. cc: Victor Hugo Coronado MD
--- NOTE | 2019-01-16 18:02 | NEPHROLOGY PROGRESS NOTE ---
DATE: 01/16/2019 REASON FOR ADMISSION: Renal biopsy . REASON FOR CONSULT: Status post perinephric hematoma post renal biopsy. HPI: Ms Colvin is a 58-year-old female who is known to our services as a new patient, a week ago Tuesday on 01/10/[address] Santana for elevated creatinine associated with proteinuria. The patient has recently been diagnosed with lung cancer status post chemotherapy and subsequent elevation in her creatinine and proteinuria. She is followed by Dr. Santana and Dr. Castaneda. The patient had a CT-guided renal biopsy per Dr. Alvarado this a.m. with an immediate perinephric hematoma on the right. We were notified, due to these findings we had requested the hospitalist group to admit the patient for further monitoring and evaluation. We had ordered Dilaudid for pain, a followup hemoglobin every 4 hours and a repeat renal ultrasound at 1 p.m. today. The patient was seen and evaluated stating that she was feeling well. Her blood pressure had improved status post Dilaudid treatment. She currently denies chest pain, increased work of breathing. She denies any nausea, vomiting or diarrhea, states that she is thirsty, she is currently on clear liquids. No swelling. No fever or chills. PAST MEDICAL HISTORY: Metastatic lung adenocarcinoma stage IV, right kidney mass, gastric prophylaxis, hypertension, gout and acute kidney injury. SURGICAL HISTORY: Pericardial effusion 2018, hysterectomy 1998, knee surgery 2000. FAMILY HISTORY: Mother diagnosed with kidney disease previously on dialysis, diabetes and high blood pressure, father unknown. SOCIAL HISTORY: Negative for tobacco, alcohol or illicit drug use. ALLERGIES: Listed as no known drug allergies. HOME MEDICATIONS: Xanax, trazodone, colchicine, folic acid, Lexapro, omeprazole, prednisone, promethazine hydrochloride, Reglan, vitamin B complex, Zofran, zinc sulfate, milk of mag, Pepcid, Tylenol, Zoloft, metoprolol, tramadol, Lasix. REVIEW OF SYSTEMS: Times 10 with pertinent positives listed above in the HPI. Patient's most recent labs, last hemoglobin of 10.4 completed before noon. PHYSICAL EXAM: This is a 58-year-old female, she is resting quietly in bed. She has no complaints.Skin: Warm and dry. HEENT: Normocephalic, atraumatic. Conjunctiva is pale pink. She has SARAVANAN. Mucous membranes are dry. Neck: Supple. Trachea midline. No evidence of JVD. Cardiovascular: Regular rate and rhythm. No murmur or gallop appreciated. Lungs: Clear to auscultation bilaterally. Equal excursion on room air. Abdomen: Soft, large, round, nontender, positive bowel sounds. Genitourinary: Not inspected. No tenderness present. Integumentary: Patient has a Band-Aid over her right flank area. This is dry and intact. No tenderness present on palpation. Site is dry and clean. Neurological: She is alert and oriented x3. ASSESSMENT AND PLAN: 1. Perinephric hematoma on the right status post renal biopsy this a.m. Repeat renal ultrasound indicates improvement in her hematoma. Hemoglobin has remained stable from 10.6 to 10.4 with further repeat every 4 hours. The patient is to remain on bedrest until 6 p.m. We have requested that hospitalist admit for further monitoring, evaluation over the next 24 hours. 2. Electrolytes and acid-base balance. These have been stable in the past. 3. Nausea. Patient had been treating with Zofran status post biopsy. We will continue to follow and evaluate patient in the a.m. for discharge. Like to thank you for allowing us to follow with this patient. Dictated by CHELE Montero for Alberto Abreu MD Face to face encounter, data reviewed, discussed with Megan Angel on 01/16/19. I agree with the above assessment and plan of care. cc: CHELE Montero MD Amit V. Vora, MD [facility]ITALBethany
[2019-01-16] MEDS ORDERED: DESYREL PO SCH (21:00)
[2019-01-16] MEDS ORDERED: XANAX PO SCH (21:00)
[2019-01-17 07:26] LABS: HEMATOCRIT 31.5 % (37.0-47.0); HEMOGLOBIN 9.9 g/dL (12.0-16.0); MCH 32.8 PG (27-31); MCHC 31.4 g/dL (33-37); MCV 104.3 FL (81-99); MPV 10.4 FL (7.4-10.4); PLT 119 X1000 (130-400); RBC 3.02 XMIL (4.2-5.4); WBC 8.59 X1000 (4.8-10.8)
[2019-01-17 07:49] VITALS: BP 117/86
[2019-01-17 07:52] LABS: ALBUMIN 3.5 g/dL (3.5-5.0); CALCIUM 8.7 mg/dL (8.8-10.2); CREATININE 1.7 mg/dL (0.5-0.9); POTASSIUM 5.9 mmol/L (3.5-5.1)
--- NOTE | 2019-01-17 09:04 | NEPHROLOGY PROGRESS NOTE ---
DATE: 01/17/2019 TIME: 729. SUBJECTIVE: Ms. Colvin is resting quietly in bed. She has been up to the bathroom. She has tolerated this activity well. No complaints. OBJECTIVE: Vital Signs: Temperature 98.5 degrees, blood pressure 109/69, heart rate 65, respirations 14. She is on room air. Last recorded saturation 100%. She has had 370 in. She has had 300 out to void. LABORATORY DATA: Sodium is 138, potassium is 5.9, chloride 106, CO2 22, BUN 48, creatinine 1.7, glucose is 90. Her anion gap is 10, calcium is 8.7, phosphorus 4, albumin 3.5. White count 8.59, hemoglobin 9.9, hematocrit 31.5 with a platelet count of 119,000. PHYSICAL EXAMINATION: General: This is a 58-year-old female resting quietly in bed. She is in no acute distress. Her skin is warm and dry. HEENT: Normocephalic, atraumatic. Conjunctivae are pale pink. She has SARAVANAN. Mucous membranes are dry. Neck is supple, trachea midline. No evidence of JVD. Cardiovascular: She is regular rate and rhythm without murmur or gallop. Lungs: Clear to auscultation bilaterally. Equal excursion on room air. Abdomen: Soft, large, round, nontender. Positive bowel sounds. Genitourinary: Not inspected. Patient has adequate void, states that she has voided multiple times, only 300 mL has been recorded. Extremities have no edema, no clubbing or cyanosis. Integumentary: Patient has a dry dressing to her right flank area. No tenderness upon inspection or palpation. Neurological: Alert and oriented x3. ASSESSMENT AND PLAN: 1. Perinephric hematoma status post renal biopsy yesterday. Hemoglobin has dropped to 9.9 from 10.6 initially prior to her procedure. This remains fairly stable. It has not dropped a full 1 point. From our perspective we will wait for her renal biopsy results. Patient is able to be discharged and follow up in our office in 3 weeks. 2. Electrolytes, acid-base balance and anemia. These are all acceptable. I would like to thank you for allowing us to follow with this patient. Dictated by CHELE Montero for Alberto Abreu MD Face to face encounter, data reviewed, discussed with Megan Angel on 01/17/19. I agree with the above assessment and plan of care. cc: CHELE Montero MD Amit V. Vora, MD MTDD
[2019-01-17] MEDS ORDERED: KAYEXALATE PO ONE (09:24)
--- NOTE | 2019-01-17 10:07 | PROGRESS NOTE ---
DATE: 01/17/2019 Ms. Colvin is doing better. Her abdomen is soft and nontender. Renal area is nontender. There is no hematoma on the abdominal wall. Her CBC is unremarkable and stable. Vital signs are normal. Potassium was 5.9, which we will give Kayexalate today. We will discharge her today with a prescription of Xanax that she takes at bedtime. cc: Victor Hugo Coronado MD
--- NOTE | 2019-01-19 18:11 | DISCHARGE SUMMARY ---
ADMISSION DATE: 01/16/2019 DISCHARGE DATE: 01/17/2019 HOSPITAL COURSE: Ms. Colvin was admitted because she had a right pararenal hematoma. After the renal biopsy, she has a known case of metastatic cancer, who had severe pericardial effusion and cancer of the lung with pleural effusion. She was watched. Hemoglobin and hematocrit was reviewed. The next day, she was asymptomatic and hemoglobin and hematocrit was stable. It was thought that the bleeding had stopped. The hematoma size also went down significantly. Hence, she was discharged. FINAL DIAGNOSIS: Perinephric hematoma. Patient improving significantly. cc: Victor Hugo Coronado MD
== END 2019-01-17 12:03 | disposition home or self-care (01) ==
LOC: OPS 06:51 → 1N 06:51 → SUATTDRO 13:11
PROVIDERS: ADMIT Internal Medicine; ATTEND Internal Medicine